=== PATIENT | female | born 1935 | race Caucasian/White ===

== ENCOUNTER 2017-07-18 22:45 | Inpatient (IN) | payer OTHER ==
[~2017-07-18] VITALS: Ht 152.4 cm; Wt 68.0 kg
--- NOTE | 2017-07-18 22:49 | ERD ---
ER Documentation Chief Complaint Chief Complaint Nausea vomiting and abdominal pain HPI The patient is a 81-year-old female, presenting to the ER because of nausea, vomiting, abdominal pain today. She only speaks Russian, her history is limited. The history is obtained from an [place] speaking nurse, who stated that the patient is confused. She fell a few days ago and complains of left proximal leg hematoma, able to walk. She denies fever, chills, cough, neck pain or chest pain, complains of vague left-sided abdominal pain, denies dysuria , denies hematemesis, hematochezia. She does not smoke nor drink X Past medical history: CAD, dyslipidemia, hypertension, chronic kidney disease, dementia Past surgical history: Stent PCI, bilateral knee arthroplasty Social history/review of system: Limited due to her condition ROS All systems reviewed and are negative except as per history of present illness. Medications Home Meds Reported Medications Apixaban* (Eliquis*) 2.5 Mg Tablet, 2.5 MG PO DAILY, TAB 07/19/17 Glycerin* (Glycerin (Adult)*) 1 Each Supp.rect, 1 EACH MA DAILY Y for CONSTIPATION, SUPP.RECT 07/19/17 Amlodipine Besylate* (Norvasc*) 5 Mg Tablet, 5 MG PO QPM, TAB 07/19/17 Atorvastatin* (Atorvastatin*) 80 Mg Tablet, 80 MG PO QHS, #30 TAB 07/19/17 Trazodone Hcl* (Trazodone Hcl*) 50 Mg Tablet, 50 MG PO QHS, #30 TAB 07/19/17 Bethanechol Chloride* (Urecholine*) 25 Mg Tab, 25 MG PO BID, TAB 07/19/17 Acetaminophen* (Acetaminophen*) 500 MG Extra Strength Tablet, 500 MG PO Q6H Y for PAIN, TAB 07/19/17 Mirtazapine* (Mirtazapine*) 15 Mg Tablet, 7.5 MG PO HS, TAB 07/19/17 Docusate Sodium* (Docusate Sodium*) 100 Mg Capsule, 100 MG PO DAILY for CONSTIPATION, #30 CAP 07/19/17 Metoprolol Tartrate* (Lopressor*) 50 Mg Tab, 50 MG PO BID, #60 TAB 07/19/17 Aspirin* (Aspirin* (EC)) 81 Mg Tablet.dr, 81 MG PO DAILY, TAB 07/19/17 Allergies Allergies: Coded Allergies: No Known Allergy (Unverified , 07/18/17) Physical Exam Vitals Vital Signs Date Time Temp Pulse Resp B/P Pulse Ox O2 Delivery O2 Flow Rate FiO2 07/19/17 04:03 98 18 118/57 98 Room Air 07/19/17 02:35 97.8 100 21 128/96 95 Room Air 07/19/17 01:00 96 16 102/90 100 Room Air 07/19/17 00:30 97 16 104/49 100 Room Air 07/18/17 22:53 97.0 80 18 127/56 94 Physical Exam Const: No acute distress. Head: Atraumatic. Eyes: Normal Conjunctiva. ENT: Normal External Ears, Nose and Mouth. Neck: Full range of motion. No meningismus. Resp: Clear to auscultation bilaterally. Cardio: Regular rate and rhythm. Abd: Soft, non distended, normal bowel sounds, vague and mild left- sided abdominal tenderness, no rigidity, rebound, CVA tenderness Skin: No petechiae or rashes. Back: No midline or flank tenderness. Ext: left proximal hematoma Neur: Limited due to her condition and encephalopathic Psych: Unable to perform due to her condition Result Diagram: 07/18/1723407/18/17234 Results 24 hrs Laboratory Tests Test 07/18/17 01:55 07/18/17 02:35 07/19/17 00:08 07/19/17 01:59 Urine Color CODY Urine Clarity TURBID Urine pH 5.0 Urine Specific [place] 1.025 Urine Ketones TRACEmg/dL Urine Nitrite NEGATIVEmg/dL Urine Bilirubin 1+mg/dL Urine Urobilinogen 2+mg/dL Urine Leukocyte Esterase 2+Juan/ul Urine Microscopic RBC > 182/HPF Urine Microscopic WBC > 182/HPF Urine Bacteria MODERATE/HPF Urine Mucus FEW/HPF Urine Hemoglobin 3+mg/dL Urine Glucose NEGATIVEmg/dL Urine Total Protein 2+mg/dl White Blood Count 14.610^3/ul Red Blood Count 3.7910^6/ul Hemoglobin 11.4g/dl Hematocrit 36.2% Mean Corpuscular Volume 95.5fl Mean Corpuscular Hemoglobin 30.1pg Mean Corpuscular Hemoglobin Concent 31.5g/dl Red Cell Distribution Width 14.8% Platelet Count 94545^3/UL Mean Platelet Volume 9.7fl Neutrophils % 86.0% Lymphocytes % 6.0% Monocytes % 7.1% Eosinophils % 0.1% Basophils % 0.3% Nucleated Red Blood Cells % 0.0/100WBC Neutrophils # 12.610^3/ul Lymphocytes # 0.910^3/ul Monocytes # 1.010^3/ul Eosinophils # 0.010^3/ul Basophils # 0.110^3/ul Nucleated Red Blood Cells # 0.010^3/ul Prothrombin Time 15.4Sec Prothrombin Time Ratio 1.2 INR International Normalized Ratio 1.21 Activated Partial Thromboplast Time 26.1Sec Sodium Level 153mmol/L Potassium Level 4.3mmol/L Chloride Level 114mmol/L Carbon Dioxide Level 25mmol/L Anion Gap 18 Blood Urea Nitrogen 37mg/dl Creatinine 1.54mg/dl Glucose Level 144mg/dl Lactic Acid Level 1.9mmol/L Calcium Level 8.8mg/dl Total Bilirubin 0.4mg/dl Direct Bilirubin 0.00mg/dl Indirect Bilirubin 0.4mg/dl Aspartate Amino Transf (AST/SGOT) 30IU/L Alanine Aminotransferase (ALT/SGPT) 28IU/L Alkaline Phosphatase 243IU/L Troponin I < 0.012ng/ml Total Protein 6.8g/dl Albumin 3.5g/dl Globulin 3.30g/dl Albumin/Globulin Ratio 1.06 Lipase 311U/L Bedside Glucose 133mg/dL Bedside Urine pH (LAB) 5.0 Bedside Urine Protein (LAB) 3+ Bedside Urine Glucose (UA) Negative Bedside Urine Ketones (LAB) 1+ Bedside Urine Blood 3+ Bedside Urine Nitrite (LAB) Negative Bedside Urine Leukocyte Esterase (L 1+ Current Medications Medications (Trade) Dose Ordered Sig/Timo Route PRN Reason Start Time Stop Time Status Last Admin Dose Admin Ondansetron HCl (Zofran Inj) 4 mg ONCE ONCE IV 07/18/17 23:30 07/18/17 23:31 DC Ondansetron HCl (Zofran Inj) 4 mg STK-MED ONCE .ROUTE 07/18/17 23:27 07/18/17 23:28 DC Ondansetron HCl 4 mg 4 mg ONCE ONCE ODT 07/19/17 00:22 07/19/17 00:23 DC 07/19/17 00:24 Piperacillin Sod/ Tazobactam Sod (Zosyn 2.25gm/ 50ml (Pmx)) 50 ml @ 100 mls/hr ONCE ONCE IVPB 07/19/17 04:00 07/19/17 04:29 07/19/17 04:01 Procedures/MDM [place] [address] Radiology Main Line: [phone] DIAGNOSTIC IMAGING REPORT Patient: ALEJANDRO DOHERTY : 1935 Age: 81 Sex: F MR #: [id number] DOS: 07/18/172302 Ordering MD: CARLENE BAUTISTA MD Location: E/R Room/Bed: PROCEDURE: XR Chest. CLINICAL INDICATION: Possible Sepsis TECHNIQUE: Single portable view of the chest was obtained COMPARISON: None FINDINGS: Low lung volumes noted. The heart is enlarged. Thoracic aortic atherosclerotic changes are present. The lungs are clear. There is no pleural effusion or pneumothorax. IMPRESSION: 1. Mild cardiomegaly. 2.Thoracic aortic atherosclerotic disease. 3. Low lung volumes. RPTAT: HRSR Physician Jossie Date Time Electronically viewed and signed by Rodrigo Baker Physician on 07/19/2017 02 :19 RR/ CC: CARLENE BAUTISTA MD [place] [address] Radiology Main Line: [phone] DIAGNOSTIC IMAGING REPORT Patient: ALEJANDRO DOHERTY : 1935 Age: 81 Sex: F MR #: [id number] DOS: 07/18/172302 Ordering MD: CARLENE BAUTISTA MD Location: E/R Room/Bed: PROCEDURE: CT BRAIN WITHOUT CONTRAST CLINICAL INDICATION: 81-year-old female with altered mental status and sepsis. TECHNIQUE: The study was performed utilizing [employer] 64-slice CT scanner. Direct axial sections were obtained from the foramen magnum to the vertex without the use of intravenous contrast material. Sagittal and coronal reformations were obtained. Sagittal and coronal reformations were obtained. One or more the following dose reduction techniques were utilized: automated exposure control, adjustment of the mA and/or kV according to patient's size, use of iterative reconstruction technique. The images were viewed on a PACS workstation. CTD/vol = 45.0 mGy; Total Exam DLP = 720.2 mGy-cm. COMPARISON: None. FINDINGS: There is moderate degree of diffuse cortical and central atrophy with compensatory ventricular enlargement. There is no evidence for mass effect or midline shift. There are periventricular areas of decreased density consistent with microangiopathic ischemic changes. There is no evidence for acute intra or extra-axial blood. Calcifications are seen within the intracranial carotid arteries bilaterally. The bony calvarium is intact. There is minimal mucosal thickening within the ethmoid air cells with small air-fluid levels within the sphenoid sinuses. There is minimal dependent soft tissue within the right mastoid air cells presumably granulation tissue from prior mastoid disease. The left mastoid air cells are without significant soft tissue. IMPRESSION: 1. Moderate diffuse atrophy. 2. Microangiopathic ischemic changes. 3. Empty sella. 4. Vascular calcifications. 5. Minimal mucosal thickening ethmoid air cells with small dependent air-fluid levels within the sphenoid sinuses. .Naeem Lizarraga MD, MD Date Time Electronically viewed and signed by .Naeem Lizarraga MD, MD on 07/19/2017 01:21 .M/ CC: CARLENE BAUTISTA MD [place] [address] Radiology Main Line: [phone] DIAGNOSTIC IMAGING REPORT Patient: ALEJANDRO DOHERTY : 1935 Age: 81 Sex: F MR #: [id number] DOS: 07/18/17 2303 Ordering MD: CARLENE BAUTISTA MD Location: E/R Room/Bed: PROCEDURE: CT ABDOMEN/PELVIS WITHOUT CONTRAST CLINICAL INDICATION: 81-year-old female with abdominal pain and sepsis. TECHNIQUE: The study was performed utilizing a GE [employer] 64-slice CT scanner. Direct axial sections were obtained through the abdomen and pelvis without the use of intravenous contrast material. Sagittal and coronal reformations were obtained. One or more of the following dose reduction techniques were utilized: automated exposure control, adjustment of the mA and/ or kV according to patient's size and/or the use of iterative reconstruction technique. The images were reviewed on a PACS workstation. CTD/vol = 19.0 mGy ; Total Exam DLP = 1043.3 mGy-cm. COMPARISON: None. FINDINGS: There is mild cardiomegaly is present. There is trace dependent pericardial effusion. Mitral annular calcification is noted. There is minimal bilateral posterior subsegmental atelectasis. There is no evidence for significant pleural effusion. The liver has a normal size and contour without focal areas of abnormal density. No intrahepatic nor extrahepatic biliary ductal dilatation is seen. There is mild dependent increased density within the gallbladder which may represent sludge versus noncalcified stones without significant wall thickening or pericholecystic fluid. The pancreas is atrophic but without areas of abnormal attenuation. The spleen is identified and has a normal size without abnormal density. The adrenal glands are unremarkable. The kidneys are mildly atrophic with multiple small cysts with the largest cyst in the right mid kidney measuring approximately 11 x 12 mm. The largest cyst in the left kidney measures approximately 10 x 9 mm. No hydroureteronephrosis nor nephroureterolithiasis is evident. The urinary bladder decompressed and contains a Kelley catheter. There is a small umbilical hernia with an opening of 16 x 14 mm containing fat. There is mildly dilated air filled colon with retained stool within the rectosigmoid region measuring approximately 16.5 x 10.9 x 8.6 cm consistent with fecal impaction. The appendix is visualized and is without abnormal thickening or surrounding inflammatory reaction. The uterus is atrophic. There is no significant free fluid. The aortoiliac vessels are calcified but without aneurysmal dilatation. Degenerative changes are present within the spine with multiple compression fractures present. There is an old compression fracture of the superior T12 vertebral body with approximately 70% loss of height. There is an old compression fracture of the inferior L1 vertebral body with approximately 50% loss of height. There is a compression fracture of the L2 vertebral body with approximately 30% loss of height with acute components most prominently within the anterosuperior aspect. There is an old compression fracture the superior L3 vertebral body with approximately 70% loss of height centrally. There is an old compression fracture of the L4 vertebral body with approximately 50% loss of height. There is a compression fracture of the L5 vertebral body with approximately 20% loss of height and acute superior components. Diffuse osteopenia is noted. IMPRESSION: 1. Mild cardiomegaly with trace dependent pericardial effusion and mitral annular calcification. 2. Small dependent gallstones versus sludge. 3. Atrophic kidneys with multiple cysts. 4. Fecal impaction. 5. Decompressed bladder containing a Kelley catheter. 6. Vascular calcifications. 7. Degenerative changes within the spine with multiple compression fractures with acute components identified involving L2 (30%) and L5 (20%) as well as old compression fractures of T12 (70%), L1 (50%), L3 (70%), L4 (50%). 8. Diffuse osteopenia. .Naeem Lizarraga MD, Date Time Electronically viewed and signed by .Naeem Lizarraga MD, MD on 07/19/2017 01:35 .M/ CC: CARLENE BAUTISTA MD [place] [address] Radiology Main Line: [phone] DIAGNOSTIC IMAGING REPORT Patient: ALEJANDRO DOHERTY : 1935 Age: 81 Sex: F MR #: [id number] DOS: 07/18/17 2307 Ordering MD: CARLENE BAUTISTA MD Location: E/R Room/Bed: PROCEDURE: XR Tibia and Fibula. CLINICAL INDICATION: Pain. TECHNIQUE: AP, lateral and oblique views of the left tibia and fibula were obtained. COMPARISON: Left knee of the same date FINDINGS: Total left knee arthroplasty changes are present without evidence of a periprosthetic fracture or evidence of surgical hardware loosening. The bones are demineralized. Prominent anterolateral soft tissue swelling adjacent to the proximal fibula is seen. Diagnostic considerations include soft tissue hematoma (favored), and infectious/inflammatory change. Degenerative changes of the ankle joint are noted. IMPRESSION: 1. Soft tissue swelling adjacent to the anterolateral proximal fibula likely to represent a small hematoma. Other consideration includes infectious/ inflammatory change. 2. Left knee arthroplasty changes without evidence of periprosthetic fracture or hardware loosening. 3. Demineralized osseous changes. 4. Degenerative ankle joint changes. RPTAT: HRSR Rodrigo Baker Physician Date Time Electronically viewed and signed by Rodrigo Baker Physician on 07/19/2017 02 :17 RR/ CC: CARLENE BAUTISTA MD [place] [address] Radiology Main Line: [phone] DIAGNOSTIC IMAGING REPORT Patient: ALEJANDRO DOHERTY : 1935 Age: 81 Sex: F MR #: [id number] DOS: 07/18/17 2307 Ordering MD: CARLENE BAUTISTA MD Location: E/R Room/Bed: PROCEDURE: Left knee x-ray CLINICAL INDICATION: Pain and swelling. TECHNIQUE: AP and lateral views of the left knee were obtained. COMPARISON: None. FINDINGS: Total left knee arthroplasty changes are present. There is no acute periprosthetic fracture, dislocation or evidence of hardware loosening. Anterolateral soft tissue swelling is present adjacent to the proximal fibula. There is no evidence of periosteal reaction or osteomyelitis. No evidence of a joint effusion. IMPRESSION: 1. Prominent soft tissue swelling adjacent to the anterolateral proximal fibula without evidence of fracture, dislocation or osteomyelitis. 2. Left knee total arthroplasty changes without evidence of hardware loosening. RPTAT: HRSR Rodrigo Baker Physician Date Time Electronically viewed and signed by Rodrigo Baker, Physician on 07/19/2017 02 :14 RR/ CC: CARLENE BAUTISTA MD [place] [address] Radiology Main Line: [phone] DIAGNOSTIC IMAGING REPORT Patient: ALEJANDRO DOHERTY : 1935 Age: 81 Sex: F MR #: [id number] DOS: 07/19/17 0232 Ordering MD: CARLENE BAUTISTA MD Location: E/R Room/Bed: PROCEDURE: XR Chest. CLINICAL INDICATION: Status post central line TECHNIQUE: Single frontal view of the chest was obtained COMPARISON: 07/19/2017 at 01:29 a.m. FINDINGS: Right central venous catheter tip near the atriocaval junction. No definite pneumothorax is seen with the patient semi-erect. There is hypoinflation of the lungs and minimal bibasilar atelectasis. The patient is rotated to the right. Hypoinflation of the lungs and portable AP technique accentuates the size of the cardiac silhouette. There is appearance of minimal enlargement of the cardiac silhouette. Calcification in the aortic arch. ECG leads are projected over the chest. There is minimal prominence of the lung interstitium likely minimal chronic changes. IMPRESSION: Right central venous catheter tip near atriocaval junction. Please see above. RPTAT: HJES .Rubin Reid MD, MD Date Time Electronically viewed and signed by .Rubin Reid MD, MD on 07/19/2017 03:07 .S/ CC: CARLENE BAUTISTA MD EKG: Read by emergency physician Rate/Rhythm: Normal Sinus Rhythm 89 beats/min QRS, ST, T-waves: No ST elevation, no T inversion, artifacts, low voltage, nonspecific T abnormality Impression: Abnormal EKG MEDICAL MAKING DECISION: The patient is a 81-year-old female, presenting with acute encephalopathy of unclear etiology, acute cystitis, acute hyponatremia, left proximal tibia hematoma. She was treated with Zosyn IV for acute cystitis with good response The differential diagnoses considered include but are not limited to CVA, tumor , metabolic encephalopathy, septic encephalopathy and pneumonia, cystitis or pyelonephritis, diarrhea, worsening dementia . Central Line Placement by me: Patient consented, sterilely draped, full prep, gown, glove, mask, time out performed. Anesthesia: 1% lidocaine locally Location: Right internal jugular vein Device: Multiple lumen Technique: Seldinger technique. Secured with suture. Results: Venous return from all ports with easy saline flush. No complications. Guide wire retrieved and disposed of. [ED Ultrasound: Central line placed by me using concurrent ultrasound guidance. Real time image archived in the medical record confirms vascular anatomy. Chest X-ray 1V Interpreted by me: Central line in SVC, Normal soft tissue, No evidence of pneumothorax. Departure Diagnosis: Primary Impression: Encephalopathy acute Additional Impressions: UTI (urinary tract infection) Hypernatremia Hematoma of left lower extremity Anemia Condition: Stable Comments I discussed the findings with the patient. I discussed the patient with on-call hospitalist Dr. Watt who was made aware of the lab, the treatment, the patient condition. The patient is admitted to telemetry at 4:10 AM Disclaimer: Inadvertent spelling and grammatical errors are likely due to EHR/ dictation software use and do not reflect on the overall quality of patient care. Also, please note that the electronic time recorded on this note does not necessarily reflect the actual time of the patient encounter. CARLENE BAUTISTA MD Jul 18, 2017 22:49
[2017-07-18 22:53] VITALS: Ht 152.4 cm; Wt 68.0 kg
[2017-07-18] MEDS ORDERED: ONDANSETRON 4 MG INJ ONE (23:27)
[2017-07-18] MEDS ORDERED: ONDANSETRON 4 MG INJ IV ONE (23:30)
[2017-07-19] VITALS (12 sets, daily range): BP systolic 99–119; BP diastolic 57–78; PULSE 85–112; RESP 18–20; TEMP 97.8
[2017-07-19] MEDS ORDERED: ONDANSETRON (ODT) 4 MG TAB ODT ONE (00:22)
--- NOTE | 2017-07-19 01:21 | RADRPT ---
PROCEDURE: CT BRAIN WITHOUT CONTRAST CLINICAL INDICATION: 81-year-old female with altered mental status and sepsis. TECHNIQUE: The study was performed utilizing [employer] VCT 64-slice CT scanner. Direct axial sections were obtained from the foramen magnum to the vertex without the use of intravenous contrast material. Sagittal and coronal reformations were obtained. Sagittal and coronal reformations were obtained. One or more the following dose reduction techniques were utilized: automated exposure cont rol, adjustment of the mA and/or kV according to patient's size, use of iterative reconstruction honorio hnique. The images were viewed on a PACS workstation. CTD/vol = 45.0 mGy; Total Exam DLP = 720.2 mG y-cm. COMPARISON: None. FINDINGS: There is moderate degree of diffuse cortical and central atrophy with compensatory ventricular enlar gement. There is no evidence for mass effect or midline shift. There are periventricular areas of decreased density consistent with microangiopathic ischemic changes. There is no evidence for acute intra or extra-axial blood. Calcifications are seen within the intracranial carotid arteries bilate rally. The bony calvarium is intact. There is minimal mucosal thickening within the ethmoid air cell s with small air-fluid levels within the sphenoid sinuses. There is minimal dependent soft tissue wi thin the right mastoid air cells presumably granulation tissue from prior mastoid disease. The left mastoid air cells are without significant soft tissue. IMPRESSION: 1. Moderate diffuse atrophy. 2. Microangiopathic ischemic changes. 3. Empty sella. 4. Vascular calcifications. 5. Minimal mucosal thickening ethmoid air cells with small dependent air-fluid levels within the sp henoid sinuses. .Naeem Lizarraga MD, Date Time Electronically viewed and signed by .Naeem Lizarraga MD, on 07/19/2017 01:21 .M/
--- NOTE | 2017-07-19 01:35 | RADRPT ---
PROCEDURE: CT ABDOMEN/PELVIS WITHOUT CONTRAST CLINICAL INDICATION: 81-year-old female with abdominal pain and sepsis. TECHNIQUE: The study was performed utilizing a [employer] VCT 64-slice CT scanner. Direct axia l sections were obtained through the abdomen and pelvis without the use of intravenous contrast mate rial. Sagittal and coronal reformations were obtained. One or more of the following dose reduction t echniques were utilized: automated exposure control, adjustment of the mA and/or kV according to pat ient's size and/or the use of iterative reconstruction technique. The images were reviewed on a PAC S workstation. CTD/vol = 19.0 mGy; Total Exam DLP = 1043.3 mGy-cm. COMPARISON: None. FINDINGS: There is mild cardiomegaly is present. There is trace dependent pericardial effusion. Mitral annular calcification is noted. There is minimal bilateral posterior subsegmental atelectasis. There is no evidence for significant pleural effusion. The liver has a normal size and contour without focal ar eas of abnormal density. No intrahepatic nor extrahepatic biliary ductal dilatation is seen. There i s mild dependent increased density within the gallbladder which may represent sludge versus noncalci fied stones without significant wall thickening or pericholecystic fluid. The pancreas is atrophic b ut without areas of abnormal attenuation. The spleen is identified and has a normal size without ab normal density. The adrenal glands are unremarkable. The kidneys are mildly atrophic with multiple s mall cysts with the largest cyst in the right mid kidney measuring approximately 11 x 12 mm. The lar gest cyst in the left kidney measures approximately 10 x 9 mm. No hydroureteronephrosis nor nephroureterolithiasis is evident. The urinary bladder decompressed and contains a Kelley catheter. T here is a small umbilical hernia with an opening of 16 x 14 mm containing fat. There is mildly dilat ed air filled colon with retained stool within the rectosigmoid region measuring approximately 16.5 x 10.9 x 8.6 cm consistent with fecal impaction. The appendix is visualized and is without abnormal thickening or surrounding inflammatory reaction. The uterus is atrophic. There is no significant dominik e fluid. The aortoiliac vessels are calcified but without aneurysmal dilatation. Degenerative change s are present within the spine with multiple compression fractures present. There is an old compress ion fracture of the superior T12 vertebral body with approximately 70% loss of height. There is an o ld compression fracture of the inferior L1 vertebral body with approximately 50% loss of height. The re is a compression fracture of the L2 vertebral body with approximately 30% loss of height with acu te components most prominently within the anterosuperior aspect. There is an old compression fracture t he superior L3 vertebral body with approximately 70% loss of height centrally. There is an old compr ession fracture of the L4 vertebral body with approximately 50% loss of height. There is a compressi on fracture of the L5 vertebral body with approximately 20% loss of height and acute superior compon ents. Diffuse osteopenia is noted. IMPRESSION: 1. Mild cardiomegaly with trace dependent pericardial effusion and mitral annular calcification. 2. Small dependent gallstones versus sludge. 3. Atrophic kidneys with multiple cysts. 4. Fecal impaction. 5. Decompressed bladder containing a Kelley catheter. 6. Vascular calcifications. 7. Degenerative changes within the spine with multiple compression fractures with acute components identified involving L2 (30%) and L5 (20%) as well as old compression fractures of T12 (70%), L1 (50 %), L3 (70%), L4 (50%). 8. Diffuse osteopenia. .Naeem Lizarraga MD, MD Date Time Electronically viewed and signed by .Naeem Lizarraga MD, on 07/19/2017 01:35 .Delaney/
[2017-07-19 02:01] LABS: URINE BLOOD (Dip) POC 3+ (NEGATIVE)
--- NOTE | 2017-07-19 02:15 | RADRPT ---
PROCEDURE: Left knee x-ray CLINICAL INDICATION: Pain and swelling. TECHNIQUE: AP and lateral views of the left knee were obtained. COMPARISON: None. FINDINGS: Total left knee arthroplasty changes are present. There is no acute periprosthetic fracture, disloca tion or evidence of hardware loosening. Anterolateral soft tissue swelling is present adjacent to th e proximal fibula. There is no evidence of periosteal reaction or osteomyelitis. No evidence of a nisha int effusion. IMPRESSION: 1. Prominent soft tissue swelling adjacent to the anterolateral proximal fibula without evidence of fracture, dislocation or osteomyelitis. 2. Left knee total arthroplasty changes without evidence of hardware loosening. RPTAT: HRSR Physician Jossie Date Time Electronically viewed and signed by Physician Jossie on 07/19/2017 02:14 /
--- NOTE | 2017-07-19 02:17 | RADRPT ---
PROCEDURE: XR Tibia and Fibula. CLINICAL INDICATION: Pain. TECHNIQUE: AP, lateral and oblique views of the left tibia and fibula were obtained. COMPARISON: Left knee of the same date FINDINGS: Total left knee arthroplasty changes are present without evidence of a periprosthetic fracture or ev idence of surgical hardware loosening. The bones are demineralized. Prominent anterolateral soft tis adri swelling adjacent to the proximal fibula is seen. Diagnostic considerations include soft tissue hematoma (favored), and infectious/inflammatory change. Degenerative changes of the ankle joint are noted. IMPRESSION: 1. Soft tissue swelling adjacent to the anterolateral proximal fibula likely to represent a small h ematoma. Other consideration includes infectious/inflammatory change. 2. Left knee arthroplasty changes without evidence of periprosthetic fracture or hardware loosening . 3. Demineralized osseous changes. 4. Degenerative ankle joint changes. RPTAT: HRSR Physician Jossie Date Time Electronically viewed and signed by Physician Jossie on 07/19/2017 02:17 RR/
--- NOTE | 2017-07-19 02:19 | RADRPT ---
PROCEDURE: XR Chest. CLINICAL INDICATION: Possible Sepsis TECHNIQUE: Single portable view of the chest was obtained COMPARISON: None FINDINGS: Low lung volumes noted. The heart is enlarged. Thoracic aortic atherosclerotic changes are present. The lungs are clear. There is no pleural effusion or pneumothorax. IMPRESSION: 1. Mild cardiomegaly. 2.Thoracic aortic atherosclerotic disease. 3. Low lung volumes. RPTAT: HRSR Physician Jossie Date Time Electronically viewed and signed by Rodrigo Baker Physician on 07/19/2017 02:19 RR/
[2017-07-19 03:03] LABS: BASOPHIL # 0.1 10^3/ul (0.0-0.1); BASOPHILS % 0.3 % (0.0-2.0); EOSINOPHILS % 0.1 % (0.0-7.0); HEMATOCRIT 36.2 % (37.0-47.0); HEMOGLOBIN 11.4 g/dl (12.0-16.0); LYMPHOCYTES # 0.9 10^3/ul (0.8-2.9); MEAN CORPUSCULAR HEMOGLOBIN 30.1 pg (29.0-33.0); MEAN CORPUSCULAR HGB CONC 31.5 g/dl (32.0-37.0); MEAN CORPUSCULAR VOLUME 95.5 fl (82.0-101.0); MEAN PLATELET VOLUME 9.7 fl (7.4-10.4); MONOCYTES % 7.1 % (0.0-11.0); NEUTROPHIL # 12.6 10^3/ul (1.6-7.5); PLATELET COUNT 210 10^3/UL (140-415); RED BLOOD COUNT 3.79 10^6/ul (4.20-5.40); RED CELL DISTRIBUTION WIDTH 14.8 % (11.5-14.5); WHITE BLOOD COUNT 14.6 10^3/ul (4.8-10.8)
--- NOTE | 2017-07-19 03:08 | RADRPT ---
PROCEDURE: XR Chest. CLINICAL INDICATION: Status post central line TECHNIQUE: Single frontal view of the chest was obtained COMPARISON: 07/19/2017 at 01:29 a.m. FINDINGS: Right central venous catheter tip near the atriocaval junction. No definite pneumothorax is seen wi th the patient semi-erect. There is hypoinflation of the lungs and minimal bibasilar atelectasis. Th e patient is rotated to the right. Hypoinflation of the lungs and portable AP technique accentuates the size of the cardiac silhouette. There is appearance of minimal enlargement of the cardiac silhou ette. Calcification in the aortic arch. ECG leads are projected over the chest. There is minimal pro minence of the lung interstitium likely minimal chronic changes. IMPRESSION: Right central venous catheter tip near atriocaval junction. Please see above. RPTAT: HJES .Rubin Reid MD, MD Date Time Electronically viewed and signed by .Rubin Reid MD, MD on 07/19/2017 03:07 .S/
[2017-07-19 03:10] LABS: INR 1.21; PROTIME 15.4 Sec (12.2-14.2); PT RATIO 1.2
[2017-07-19] MEDS ORDERED: ATOR80TA75 PO (03:10)
[2017-07-19] MEDS ORDERED: METO-429 PO (03:10)
[2017-07-19] MEDS ORDERED: DOCU-159 PO (03:10)
[2017-07-19] MEDS ORDERED: MIRT15TA5 PO (03:10)
[2017-07-19] MEDS ORDERED: ACET-141 PO (03:10)
[2017-07-19] MEDS ORDERED: AMLO5TAB4 PO (03:10)
[2017-07-19] MEDS ORDERED: GLYC1SUP92 PR (03:10)
[2017-07-19] MEDS ORDERED: ASPI-664 PO (03:10)
[2017-07-19] MEDS ORDERED: BETH25TA39 PO (03:10)
[2017-07-19] MEDS ORDERED: APIX2.5T PO (03:10)
[2017-07-19] MEDS ORDERED: TRAZ50TA18 PO (03:10)
[2017-07-19 03:11] LABS: PARTIAL THROMBOPLASTIN TIME 26.1 Sec (25.0-35.0)
[2017-07-19 03:12] LABS: ADD UMIC YES; UR ASCORBIC ACID NEGATIVE (NEGATIVE); UR BACTERIA MODERATE /HPF (NONE SEEN); UR BILIRUBIN (Dip) 1+ mg/dL (NEGATIVE); UR BLOOD (Dip) 3+ mg/dL (NEGATIVE); UR CLARITY TURBID (CLEAR); UR COLOR AMBER (YELLOW); UR GLUCOSE (Dip) NEGATIVE (NEGATIVE); UR KETONES (Dip) TRACE mg/dL (NEGATIVE); UR LEUKOCYTE ESTERASE (Dip) 2+ Leu/ul (NEGATIVE); UR MUCUS FEW /HPF (NONE SEEN); UR NITRITE (Dip) NEGATIVE (NEGATIVE); UR RBC > 182 /HPF (0-5); UR SPECIFIC GRAVITY (Dip) 1.025 (1.003-1.030); UR TOTAL PROTEIN (Dip) 2+ mg/dl (NEGATIVE); UR UROBILINOGEN (Dip) 2+ mg/dL (NEGATIVE)
[2017-07-19 03:36] LABS: ALANINE AMINOTRANSFERASE 28 IU/L (13-69); ALBUMIN 3.5 g/dl (3.3-4.9); ALBUMIN/GLOBULIN RATIO 1.06; ALKALINE PHOSPHATASE 243 IU/L (42-121); ANION GAP 18 (8-16); ASPARTATE AMINO TRANSFERASE 30 IU/L (15-46); BILIRUBIN,INDIRECT 0.4 mg/dl (0-1.1); BILIRUBIN,TOTAL 0.4 mg/dl (0.2-1.3); BLOOD UREA NITROGEN 37 mg/dl (7-20); CALCIUM 8.8 mg/dl (8.4-10.2); CARBON DIOXIDE 25 mmol/L (21-31); CHLORIDE 114 mmol/L (97-110); CREATININE 1.54 mg/dl (0.44-1.00); GLUCOSE 144 mg/dl (70-220); POTASSIUM 4.3 mmol/L (3.5-5.1); SODIUM 153 mmol/L (135-144); TOTAL PROTEIN 6.8 g/dl (6.1-8.1)
[2017-07-19 03:51] LABS: TROPONIN-I < 0.012 ng/ml (0.00-0.12)
[2017-07-19] MEDS ORDERED: PIPER-TAZO 2.25 GM (PMX) 50 ML IVPB ONE (04:00)
[2017-07-19] MEDS ORDERED: ONDANSETRON 4 MG INJ IV PRN (07:00)
[2017-07-19] MEDS: CEFTRIAXONE 1 GM/50 ML (PMX) 50 ML IVPB SCH ×2 (08:34→21:13)
[2017-07-19] MEDS: DEXTROSE 5% 1,000 ML IV SCH ×2 (08:34→21:18)
--- NOTE | 2017-07-19 09:48 | HP ---
Date/Time of Note Date/Time of Note DATE: 07/19/17 TIME: 09:36 Assessment/Plan VTE Prophylaxis VTE Prophylaxis Intervention: SCD's Lines/Catheters Urinary Cath still in place: Yes Reason Cath still needed: other (indicate) Assessment/Plan Assessment/Plan 1. Abdominal pain with nausea and vomiting and diarrhea -This could be from gastroenteritis or infectious process from UTI -Keep n.p.o. for now and treat UTI -IV fluid -Stool studies 2. UTI IV antibiotic with IV fluid Follow-up culture results 3. Left lower extremity swelling, status post fall Imaging with soft tissue swelling but no acute fracture Pain management Physical therapy eval the patient able to 4. Hypernatremia -D5W 5. History of CAD with stent Continue home medications. Hold Eliquis 6. History of dyslipidemia Continue statin 7. History of dementia -Likely worsening was fall, infectious etiology and hypernatremia -See above for treatment plan -Palliative care consultation has been placed HPI/ROS Admit Date/Time Admit Date/Time Jul 19, 2017 at 04:12 Hx of Present Illness This is an 81-year-old female with history of CAD with stent, dyslipidemia, hypertension, chronic kidney disease, dementia was brought to ER from assisted living facility for left lower extremity pain swelling, abdominal pain, nausea/ vomiting and diarrhea. Patient is not fully oriented and as such information is gathered from chart review and from the ER physician. Patient recently fell down and has been having pain and swelling of left lower extremity. While she was in the ER, she was noted to have multiple episodes of bowel movements. On presentation to the ER, vitals were stable. Multiple imagings were done. Left fibula/tibia imaging showed soft tissue swelling. CT abdomen pelvis showed degenerative changes within the spine with multiple compression fractures with chronic and acute components. Head CT with no acute findings. Labs shows WBC of almost 15,000 and urinalysis consistent with UTI. PMH/Family/Social Social History Smoking Status: Never smoker Exam/Review of Systems Vital Signs Vitals Vital Signs Date Time Temp Pulse Resp B/P Pulse Ox O2 Delivery O2 Flow Rate FiO2 07/19/17 08:09 87 07/19/17 07:16 97.8 20 99/57 98 07/19/17 05:30 Room Air Exam Constitutional: alert, oriented Head: atraumatic, normocephalic Eyes: EOMI Respiratory: clear to auscultation, normal air movement Cardiovascular: regular rate and rhythm Gastrointestinal: soft Extremities: normal pulses Labs Result Diagram: 07/18/1723407/18/17234 Medications Medications Current Medications Dextrose 1,000 ml @ 75 mls/hr [id number] IV Last administered on 07/19/17 08:34 ; Admin Dose 75 MLS/HR; Start 07/19/17 at 07:00 Ceftriaxone Sodium (Rocephin) 50 ml @ 100 mls/hr Q12 IVPB Last administered on 07/19/17 08:34; Admin Dose 100 MLS/HR; Start 07/19/17 at 09:00 Ondansetron HCl (Zofran Inj) 4 mg Q6H PRN IV NAUSEA AND/OR VOMITING; Start 07/19/17 at 07:00 CHER BROWN MD Jul 19, 2017 09:48
[2017-07-19] MEDS ORDERED: ACETAMINOPHEN 500 MG TAB PO PRN (10:00)
[2017-07-19 11:15] LABS: BASOPHILS % 0.1 % (0.0-2.0); HEMATOCRIT 32.3 % (37.0-47.0); HEMOGLOBIN 10.1 g/dl (12.0-16.0); LYMPHOCYTES # 0.9 10^3/ul (0.8-2.9); LYMPHOCYTES % 8.7 % (15.0-51.0); MEAN CORPUSCULAR HEMOGLOBIN 30.1 pg (29.0-33.0); MEAN CORPUSCULAR HGB CONC 31.3 g/dl (32.0-37.0); MEAN CORPUSCULAR VOLUME 96.1 fl (82.0-101.0); MEAN PLATELET VOLUME 9.9 fl (7.4-10.4); MONOCYTE # 0.5 10^3/ul (0.3-0.9); MONOCYTES % 5.2 % (0.0-11.0); NEUTROPHIL # 8.6 10^3/ul (1.6-7.5); NEUTROPHILS % 85.5 % (39.0-77.0); PLATELET COUNT 168 10^3/UL (140-415); RED BLOOD COUNT 3.36 10^6/ul (4.20-5.40); RED CELL DISTRIBUTION WIDTH 14.8 % (11.5-14.5); WHITE BLOOD COUNT 10.1 10^3/ul (4.8-10.8)
[2017-07-19 11:24] LABS: POSITIVE DIFF @See below
[2017-07-19 11:27] LABS: ALBUMIN 2.9 g/dl (3.3-4.9); BILIRUBIN,INDIRECT 0.2 mg/dl (0-1.1); BILIRUBIN,TOTAL 0.2 mg/dl (0.2-1.3); CALCIUM 8.3 mg/dl (8.4-10.2); CREATININE 1.33 mg/dl (0.44-1.00); TOTAL PROTEIN 5.8 g/dl (6.1-8.1)
[2017-07-19] MEDS: MIRTAZAPINE 15 MG TAB PO SCH (21:13)
[2017-07-19] MEDS: ATORVASTATIN 80 MG TAB PO SCH (21:13)
[2017-07-19] MEDS: AMLODIPINE 5 MG TAB PO SCH (21:14)
[2017-07-19] MEDS: traZODone 50 MG TAB PO SCH (21:14)
[2017-07-19] MEDS: BETHANECHOL 25 MG TAB PO SCH (21:14)
[2017-07-19] MEDS: METOPROLOL 50 MG TAB PO SCH (21:15)
[2017-07-20] VITALS (11 sets, daily range): BP systolic 100–110; BP diastolic 59–66; PULSE 82–101; RESP 16–18
[2017-07-20] MEDS: DEXTROSE 5% 1,000 ML IV SCH ×2 (05:08→15:08)
[2017-07-20] MEDS ORDERED: VANCOMYCIN IV PER PHARMACY XX SCH (06:30)
[2017-07-20] MEDS ORDERED: VANCOMYCIN 1.25 GM in SOD CHLORIDE 0.9% 250 ML IVPB ONE (08:00)
[2017-07-20] MEDS ORDERED: APIXABAN 5 MG TABLET PO SCH (09:00)
[2017-07-20 09:06] LABS: BASOPHILS % 0.3 % (0.0-2.0); EOSINOPHILS % 0.5 % (0.0-7.0); HEMATOCRIT 29.7 % (37.0-47.0); HEMOGLOBIN 9.2 g/dl (12.0-16.0); LYMPHOCYTES # 1.3 10^3/ul (0.8-2.9); LYMPHOCYTES % 16.6 % (15.0-51.0); MEAN CORPUSCULAR HEMOGLOBIN 29.8 pg (29.0-33.0); MEAN CORPUSCULAR VOLUME 96.1 fl (82.0-101.0); MEAN PLATELET VOLUME 9.8 fl (7.4-10.4); MONOCYTE # 0.6 10^3/ul (0.3-0.9); MONOCYTES % 8.2 % (0.0-11.0); NEUTROPHIL # 5.8 10^3/ul (1.6-7.5); NEUTROPHILS % 73.9 % (39.0-77.0); PLATELET COUNT 165 10^3/UL (140-415); RED BLOOD COUNT 3.09 10^6/ul (4.20-5.40); RED CELL DISTRIBUTION WIDTH 14.9 % (11.5-14.5); WHITE BLOOD COUNT 7.8 10^3/ul (4.8-10.8)
[2017-07-20 09:29] LABS: CALCIUM 8.1 mg/dl (8.4-10.2); CREATININE 1.26 mg/dl (0.44-1.00); MAGNESIUM 1.7 mg/dl (1.7-2.5); PHOSPHORUS 3.6 mg/dl (2.5-4.9); POTASSIUM 3.1 mmol/L (3.5-5.1)
[2017-07-20] MEDS: ASPIRIN (EC) 81 MG TAB PO SCH (09:50)
[2017-07-20] MEDS: METOPROLOL 50 MG TAB PO SCH ×2 (09:50→23:38)
[2017-07-20] MEDS: BETHANECHOL 25 MG TAB PO SCH ×2 (09:50→21:55)
[2017-07-20] MEDS: DOCUSATE SODIUM 100 MG CAP PO SCH (09:50)
[2017-07-20] MEDS: CEFTRIAXONE 1 GM/50 ML (PMX) 50 ML IVPB SCH (09:50)
[2017-07-20] MEDS ORDERED: POTASSIUM CHLORIDE 250 ML IVPB ONE (12:00)
[2017-07-20] MEDS ORDERED: MAGNESIUM SULFATE 2 GM/50 ML 50 ML IVPB ONE (12:30)
[2017-07-20] MEDS ORDERED: ENOXAPARIN 30 MG/0.3 ML SYG SC SCH (13:00)
--- NOTE | 2017-07-20 16:10 | CONS ---
DATE OF ADMISSION: 07/19/2017 DATE OF CONSULTATION: 07/20/2017 INFECTIOUS DISEASE CONSULTATION REASON FOR CONSULTATION: Antibiotic management. HISTORY OF PRESENT ILLNESS: Frieda Candelario is an 81-year-old female with a number of problems who is being seen for antibiotic management. Her past problems include: 1. Coronary artery disease with stent placement. 2. Dyslipidemia. 3. Hypertension. 4. Chronic renal disease. 5. Senile dementia. She was brought to the emergency room for left lower extremity pain and swelling as well as abdomina l pain, nausea, vomiting and diarrhea. She is not fully oriented. She recently fell down and has p ain as well as swelling of the left lower extremity. She had multiple bowel movements in the emerge ncy room. A left tibia and fibula imaging showed soft tissue swelling. CT of the abdomen and pelvi s showed degenerative changes within the spine with multiple compression fractures with chronic and acute components. CT scan showed no acute findings. Lab shows white count of almost 15,000. Urina lysis is consistent with a UTI. PAST MEDICAL HISTORY AND OPERATIONS: As outlined. FAMILY HISTORY: Noncontributory. SOCIAL HISTORY: She does not smoke, drink or abuse drugs. ALLERGIES: NONE TO PENICILLIN, SULFA OR FOODS. MEDICATIONS: Per chart. REVIEW OF SYSTEMS: As per HPI. PHYSICAL EXAMINATION: GENERAL: The patient is an elderly appearing [place] female who is awake, but noncommunicative, co mplaining of nausea, vomiting, abdominal pain, in no acute distress. VITAL SIGNS: Stable. She is afebrile. SKIN: Without generalized rash. HEENT: Within normal limits. NECK: Supple. LYMPH NODES: None palpable. CHEST: Decreased breath sounds at the bases. HEART: Without murmur or gallop. ABDOMEN: Soft, nontender, without organosplenomegaly or masses. She has some CVA tenderness. RECTAL AND GENITAL EXAMS: Deferred. NEUROLOGICAL EVALUATION: No focal neurological abnormalities. Exam limited by encephalopathy. LABORATORY DATA: Her white count on admission was 14.6, H and H of 11.4 and 36.2, platelet count 21 0,000. BUN and creatinine 37/1.54. Urine showed leukocyte esterase 2+, nitrite negative, greater t duque 102 white cells per high powered field. Her chest x-ray shows right central vein catheter near the tip of the atriocaval junction, but no pneumothorax or obvious infection. Microbiology - gram-p ositive cocci in pairs and clusters in the blood, 1/2. Urine is growing Staphylococcus aureus and g kavya-negative rods. IMPRESSION: The patient has significant urinary tract infection. She has been started on vancomyci n and ceftriaxone. I concur with this approach. We will see what the gram-negative rods are, we jeny y want to change her to cefepime. I will dictate my findings to the hospitalist. Dictated By: ROSA YANG MD, JD/NTS Conf#: [id number] DID#: [id number] CC: CHER BROWN MD;*End*
--- NOTE | 2017-07-20 18:18 | PN ---
Date/Time of Note Date/Time of Note DATE: 07/20/17 TIME: 18:11 Assessment/Plan VTE Prophylaxis VTE Prophylaxis Intervention: other Assessment/Plan Chief Complaint/Hosp Course 1. Sepsis secondary to UTI Urine culture shows staph and gram-negative rods ID consultation appreciated Continue vancomycin cefepime 2. History of end-stage dementia Patient is followed by hospice 3. Left lower extremity swelling, status post fall Imaging with soft tissue swelling but no acute fracture Pain management 4. Hypernatremia-resolved Continue IV fluids 5. History of CAD with stent Continue home medications 6. History of dyslipidemia Continue statin 7. Atrial fibrillation Continue beta-abdoulaye and Eliquis 8. History of compression fractures Prophylaxis: Eliquis Problems: Subjective 24 Hr Interval Summary Constitutional: disoriented Exam/Review of Systems Vital Signs Vitals Vital Signs Date Time Temp Pulse Resp B/P Pulse Ox O2 Delivery O2 Flow Rate FiO2 07/20/17 16:00 94 07/20/17 15:23 98.1 16 102/63 97 07/19/17 05:30 Room Air Intake and Output 07/19/17 07/19/17 07/20/17 15:00 23:00 07:00 Intake Total 200 ml 100 ml Output Total 400 ml 430 ml Balance -200 ml -330 ml Exam Constitutional: alert Psych: confusion Respiratory: clear to auscultation Cardiovascular: regular rate and rhythm Gastrointestinal: soft, No distended Musculoskeletal: nl extremities to inspection Results Result Diagram: 07/20/17 0749 07/20/17 0749 Results 24 hrs Laboratory Tests Test 07/20/17 07:49 White Blood Count 7.8 # Red Blood Count 3.09 L Hemoglobin 9.2 L Hematocrit 29.7 L Mean Corpuscular Volume 96.1 Mean Corpuscular Hemoglobin 29.8 Mean Corpuscular Hemoglobin Concent 31.0 L Red Cell Distribution Width 14.9 H Platelet Count 165 Mean Platelet Volume 9.8 Neutrophils % 73.9 Lymphocytes % 16.6 Monocytes % 8.2 Eosinophils % 0.5 Basophils % 0.3 Nucleated Red Blood Cells % 0.0 Neutrophils # 5.8 Lymphocytes # 1.3 Monocytes # 0.6 Eosinophils # 0.0 Basophils # 0.0 Nucleated Red Blood Cells # 0.0 Sodium Level 140 Potassium Level 3.1 L Chloride Level 108 Carbon Dioxide Level 24 Anion Gap 11 Blood Urea Nitrogen 38 H Creatinine 1.26 H Glucose Level 87 # Calcium Level 8.1 L Phosphorus Level 3.6 Magnesium Level 1.7 Medications Medications Current Medications Dextrose (D5W) 1,000 ml @ 100 mls/hr Q10H IV Last administered on 07/20/17 05:08; Admin Dose 100 MLS/HR; Start 07/19/17 at 07:00 Ondansetron HCl (Zofran Inj) 4 mg Q6H PRN IV NAUSEA AND/OR VOMITING; Start 07/19/17 at 07:00 Acetaminophen (Tylenol Tab) 500 mg Q6H PRN PO PAIN; Start 07/19/17 at 10:00 Amlodipine Besylate (Norvasc) 5 mg QPM PO Last administered on 07/19/17 21:14 ; Admin Dose 5 MG; Start 07/19/17 at 21:00 Aspirin (Halfprin) 81 mg DAILY PO Last administered on 07/20/17 09:50; Admin Dose 81 MG; Start 07/20/17 at 09:00 Atorvastatin Calcium (Lipitor) 80 mg QHS PO Last administered on 07/19/17 21: 13; Admin Dose 80 MG; Start 07/19/17 at 21:00 Bethanechol Chloride (Urecholine) 25 mg BID PO Last administered on 07/20/17 09:50; Admin Dose 25 MG; Start 07/19/17 at 21:00 Docusate Sodium (Colace) 100 mg DAILY PO Last administered on 07/20/17 09:50 ; Admin Dose 100 MG; Start 07/20/17 at 09:00 Metoprolol Tartrate (Lopressor) 50 mg BID PO Last administered on 07/20/17 09 :50; Admin Dose 50 MG; Start 07/19/17 at 21:00 Mirtazapine (Remeron) 7.5 mg HS PO Last administered on 07/19/17 21:13; Admin Dose 7.5 MG; Start 07/19/17 at 21:00 Trazodone HCl 50 mg 50 mg QHS PO Last administered on 07/19/17 21:14; Admin Dose 50 MG; Start 07/19/17 at 21:00 Vancomycin HCl (Vancocin) 250 ml @ 125 mls/hr Q36H IVPB ; Start 07/21/17 at 08 :00 Enoxaparin Sodium 30 mg 30 mg DAILY SC Last administered on 07/20/17t 14:13; Admin Dose 30 MG; Start 07/20/17 at 13:00 Cefepime HCl (Maxipime 1gm/50 ml (Pmx)) 50 ml @ 100 mls/hr Q24H IVPB ; Start 07/20/17 at 21:00 ZORAN ABREU Jul 20, 2017 18:18
[2017-07-20] MEDS: CEFEPIME 1GM/50 ML (PMX) 50 ML IVPB SCH (21:49)
[2017-07-20] MEDS: traZODone 50 MG TAB PO SCH (21:53)
[2017-07-20] MEDS: ATORVASTATIN 80 MG TAB PO SCH (21:53)
[2017-07-20] MEDS: AMLODIPINE 5 MG TAB PO SCH (21:55)
[2017-07-20] MEDS: MIRTAZAPINE 15 MG TAB PO SCH (21:57)
[2017-07-20] MEDS: APIXABAN 5 MG TABLET PO SCH (22:14)
[2017-07-21] VITALS (13 sets, daily range): BP systolic 105–127; BP diastolic 53–73; PULSE 75–99; RESP 17–20
[2017-07-21] MEDS: DEXTROSE 5% 1,000 ML IV SCH ×3 (01:08→21:08)
[2017-07-21 07:11] LABS: BASOPHILS % 0.3 % (0.0-2.0); EOSINOPHILS # 0.1 10^3/ul (0.0-0.5); EOSINOPHILS % 2.2 % (0.0-7.0); HEMATOCRIT 29.4 % (37.0-47.0); HEMOGLOBIN 9.1 g/dl (12.0-16.0); LYMPHOCYTES % 15.5 % (15.0-51.0); MEAN CORPUSCULAR HEMOGLOBIN 29.4 pg (29.0-33.0); MEAN CORPUSCULAR VOLUME 94.8 fl (82.0-101.0); MEAN PLATELET VOLUME 9.3 fl (7.4-10.4); MONOCYTE # 0.4 10^3/ul (0.3-0.9); MONOCYTES % 6.7 % (0.0-11.0); NEUTROPHIL # 4.7 10^3/ul (1.6-7.5); NEUTROPHILS % 74.7 % (39.0-77.0); PLATELET COUNT 145 10^3/UL (140-415); WHITE BLOOD COUNT 6.3 10^3/ul (4.8-10.8)
[2017-07-21 07:36] LABS: CALCIUM 7.8 mg/dl (8.4-10.2); CREATININE 1.15 mg/dl (0.44-1.00); MAGNESIUM 2.2 mg/dl (1.7-2.5); POTASSIUM 3.5 mmol/L (3.5-5.1)
[2017-07-21] MEDS ORDERED: VANCOMYCIN 1 GM in NS 250 ML IVPB SCH (08:00)
[2017-07-21] MEDS: APIXABAN 5 MG TABLET PO SCH ×2 (08:58→20:27)
[2017-07-21] MEDS: ASPIRIN (EC) 81 MG TAB PO SCH (08:58)
[2017-07-21] MEDS: METOPROLOL 50 MG TAB PO SCH ×2 (08:58→20:29)
[2017-07-21] MEDS: BETHANECHOL 25 MG TAB PO SCH ×2 (08:59→20:25)
[2017-07-21] MEDS: DOCUSATE SODIUM 100 MG CAP PO SCH (08:59)
[2017-07-21] MEDS ORDERED: ENOXAPARIN 40 MG/0.4 ML SYG SC SCH (09:00)
--- NOTE | 2017-07-21 13:39 | PN ---
Date/Time of Note Date/Time of Note DATE: 07/21/17 TIME: 13:37 Assessment/Plan VTE Prophylaxis VTE Prophylaxis Intervention: other Assessment/Plan Chief Complaint/Hosp Course 1. Sepsis secondary to UTI Urine culture shows MRSA and enterococcus ID consultation appreciated Continue vancomycin cefepime 2. History of end-stage dementia Patient is followed by hospice 3. Left lower extremity swelling, status post fall Imaging with soft tissue swelling but no acute fracture Pain management 4. Hypernatremia-resolved Continue IV fluids 5. History of CAD with stent Continue home medications 6. History of dyslipidemia Continue statin 7. Atrial fibrillation Continue beta-abdoulaye and Eliquis 8. History of compression fractures No pain reported Prophylaxis: Eliquis Problems: Subjective 24 Hr Interval Summary Constitutional: disoriented Exam/Review of Systems Vital Signs Vitals Vital Signs Date Time Temp Pulse Resp B/P Pulse Ox O2 Delivery O2 Flow Rate FiO2 07/21/17 12:13 75 07/21/17 11:33 98.0 18 105/56 98 07/19/17 05:30 Room Air Intake and Output 07/20/17 07/20/17 07/21/17 15:00 23:00 07:00 Intake Total 700 ml 800 ml Output Total 450 ml 600 ml Balance 250 ml 200 ml Exam Constitutional: alert Psych: confusion Respiratory: clear to auscultation Cardiovascular: regular rate and rhythm Gastrointestinal: soft, No distended Musculoskeletal: nl extremities to inspection Results Result Diagram: 07/21/17 0701 07/21/17 0701 Results 24 hrs Laboratory Tests Test 07/21/17 07:01 White Blood Count 6.3 Red Blood Count 3.10 L Hemoglobin 9.1 L Hematocrit 29.4 L Mean Corpuscular Volume 94.8 Mean Corpuscular Hemoglobin 29.4 Mean Corpuscular Hemoglobin Concent 31.0 L Red Cell Distribution Width 15.0 H Platelet Count 145 Mean Platelet Volume 9.3 Neutrophils % 74.7 Lymphocytes % 15.5 Monocytes % 6.7 Eosinophils % 2.2 Basophils % 0.3 Nucleated Red Blood Cells % 0.0 Neutrophils # 4.7 Lymphocytes # 1.0 Monocytes # 0.4 Eosinophils # 0.1 Basophils # 0.0 Nucleated Red Blood Cells # 0.0 Sodium Level 138 Potassium Level 3.5 Chloride Level 108 Carbon Dioxide Level 23 Anion Gap 11 Blood Urea Nitrogen 32 H Creatinine 1.15 H Glucose Level 87 Calcium Level 7.8 L Magnesium Level 2.2 Medications Medications Current Medications Dextrose (D5W) 1,000 ml @ 100 mls/hr Q10H IV Last administered on 07/21/17 07:02; Admin Dose 100 MLS/HR; Start 07/19/17 at 07:00 Ondansetron HCl (Zofran Inj) 4 mg Q6H PRN IV NAUSEA AND/OR VOMITING; Start 07/19/17 at 07:00 Acetaminophen (Tylenol Tab) 500 mg Q6H PRN PO PAIN; Start 07/19/17 at 10:00 Amlodipine Besylate (Norvasc) 5 mg QPM PO Last administered on 07/20/17 21:55 ; Admin Dose 5 MG; Start 07/19/17 at 21:00 Aspirin (Halfprin) 81 mg DAILY PO Last administered on 07/21/17 08:58; Admin Dose 81 MG; Start 07/20/17 at 09:00 Atorvastatin Calcium (Lipitor) 80 mg QHS PO Last administered on 07/20/17 21: 53; Admin Dose 80 MG; Start 07/19/17 at 21:00 Bethanechol Chloride (Urecholine) 25 mg BID PO Last administered on 07/21/17 08:59; Admin Dose 25 MG; Start 07/19/17 at 21:00 Docusate Sodium (Colace) 100 mg DAILY PO Last administered on 07/21/17 08:59 ; Admin Dose 100 MG; Start 07/20/17 at 09:00 Metoprolol Tartrate (Lopressor) 50 mg BID PO Last administered on 07/21/17 08 :58; Admin Dose 50 MG; Start 07/19/17 at 21:00 Mirtazapine (Remeron) 7.5 mg HS PO Last administered on 07/20/17 21:57; Admin Dose 7.5 MG; Start 07/19/17 at 21:00 Trazodone HCl 50 mg 50 mg QHS PO Last administered on 07/20/17 21:53; Admin Dose 50 MG; Start 07/19/17 at 21:00 Cefepime HCl (Maxipime 1gm/50 ml (Pmx)) 50 ml @ 100 mls/hr Q24H IVPB Last administered on 07/20/17 21:49; Admin Dose 100 MLS/HR; Start 07/20/17 at 21: 00 Apixaban 2.5 mg 2.5 mg BID PO Last administered on 07/21/17t 08:58; Admin Dose 2.5 MG; Start 07/20/17 at 21:00 Vancomycin HCl/ Dextrose/Water (Vancocin/D5W) 150 ml @ 75 mls/hr Q24H IVPB ; Start 07/22/17 at 09:00 ZORAN ABREU Jul 21, 2017 13:39
--- NOTE | 2017-07-21 18:50 | PN ---
DATE: 07/21/2017 SUBJECTIVE: The patient is awake, looks comfortable, no fevers overnight. WBC 6.3, no shift, no ba nds. BUN 32, creatinine 1.15. MICROBIOLOGY: Blood culture growing gram-positive cocci in pairs and clusters. Urine culture growi ng Providencia, MRSA, enterococcus species. Repeat blood cultures from yesterday are negative. ANTIMICROBIALS: The patient is on: 1. Vancomycin. 2. Cefepime. PHYSICAL EXAMINATION: GENERAL: This is a fragile, elderly woman who is awake, in no distress. HEENT: Head atraumatic, normocephalic. Sclerae anicteric. Buccal mucosa pink. NECK: Supple. CHEST: Rise symmetrical. Breath sounds clear. HEART: S1, S2. ABDOMEN: Soft, bowel tones present. EXTREMITIES: Without cyanosis. Left leg with area of erythema and fluctuance laterally by the knee . ASSESSMENT: 1. Bacteremia. 2. Polymicrobial urinary tract infection. 3. Left lower extremity cellulitis with possible hematoma versus abscess. 4. History of left knee arthroplasty without evidence of periprosthetic fracture or hardware loosen ing per x-ray, new. 5. Coronary artery disease, history of stent. PLAN: The patient remains stable. We will continue her on current antibiotics. Consider 2D echo a nd ortho evaluation for possible fluid aspiration from her left lower extremity. Dictated By: BRITTANI MORA [employer] OPERATOR for ROSA YANG MD NI/NTS Conf#: [id number] DID#: [id number] CC: CHER BROWN MD;*End*
[2017-07-21] MEDS: CEFEPIME 1GM/50 ML (PMX) 50 ML IVPB SCH (20:25)
[2017-07-21] MEDS: ATORVASTATIN 80 MG TAB PO SCH (20:25)
[2017-07-21] MEDS: MIRTAZAPINE 15 MG TAB PO SCH (20:27)
[2017-07-21] MEDS: AMLODIPINE 5 MG TAB PO SCH (20:29)
[2017-07-21] MEDS: traZODone 50 MG TAB PO SCH (20:29)
[2017-07-22] VITALS (11 sets, daily range): BP systolic 106–138; BP diastolic 57–79; PULSE 70–91; RESP 16–21
[2017-07-22] MEDS: DEXTROSE 5% 1,000 ML IV SCH ×3 (00:49→17:58)
[2017-07-22 06:34] LABS: BASOPHILS % 0.2 % (0.0-2.0); EOSINOPHILS # 0.1 10^3/ul (0.0-0.5); HEMATOCRIT 30.2 % (37.0-47.0); HEMOGLOBIN 9.8 g/dl (12.0-16.0); LYMPHOCYTES # 1.2 10^3/ul (0.8-2.9); LYMPHOCYTES % 18.2 % (15.0-51.0); MEAN CORPUSCULAR HEMOGLOBIN 30.4 pg (29.0-33.0); MEAN CORPUSCULAR HGB CONC 32.5 g/dl (32.0-37.0); MEAN CORPUSCULAR VOLUME 93.8 fl (82.0-101.0); MEAN PLATELET VOLUME 10.4 fl (7.4-10.4); MONOCYTE # 0.5 10^3/ul (0.3-0.9); MONOCYTES % 7.3 % (0.0-11.0); NEUTROPHIL # 4.7 10^3/ul (1.6-7.5); NEUTROPHILS % 71.8 % (39.0-77.0); PLATELET COUNT 152 10^3/UL (140-415); RED BLOOD COUNT 3.22 10^6/ul (4.20-5.40); RED CELL DISTRIBUTION WIDTH 14.4 % (11.5-14.5); WHITE BLOOD COUNT 6.6 10^3/ul (4.8-10.8)
[2017-07-22 07:26] LABS: CREATININE 1.18 mg/dl (0.44-1.00); MAGNESIUM 2.1 mg/dl (1.7-2.5); POTASSIUM 3.2 mmol/L (3.5-5.1)
[2017-07-22] MEDS: METOPROLOL 50 MG TAB PO SCH ×2 (09:25→22:07)
[2017-07-22] MEDS: APIXABAN 5 MG TABLET PO SCH ×2 (09:25→22:07)
[2017-07-22] MEDS: ASPIRIN (EC) 81 MG TAB PO SCH (09:26)
[2017-07-22] MEDS: BETHANECHOL 25 MG TAB PO SCH ×2 (09:26→22:05)
[2017-07-22] MEDS: DOCUSATE SODIUM 100 MG CAP PO SCH (09:26)
[2017-07-22] MEDS: VANCOMYCIN 750 MG in DEXTROSE 5% 150 ML IVPB SCH (09:39)
[2017-07-22] MEDS ORDERED: POTASSIUM CHLORIDE 250 ML IVPB ONE (12:30)
--- NOTE | 2017-07-22 16:44 | CONS ---
Date/Time of Note Date/Time of Note DATE: 07/22/17 TIME: 16:39 Consultation Date/Type/Reason Admit Date/Time Jul 19, 2017 at 04:12 Initial Consult Date SUBJECTIVE: 81 y/o female being treated for bacteremia and UTI, Lt LE cellulitis. The patient is sleepy, and looks comfortable. No acute events over night. VS:118/77 P:85 R:21 SO2:98% T:97.2 WBC 6.6 H&H:9.8/30.2 BUN 32, creatinine 1.15. MICROBIOLOGY: Blood culture growing gram-positive cocci in pairs and clusters. Urine culture growing Providencia, MRSA, enterococcus species. Repeat blood cultures from yesterday are negative. ANTIMICROBIALS: The patient is on: 1. Vancomycin. 2. Cefepime. PHYSICAL EXAMINATION: GENERAL: This is a fragile, elderly woman who is awake, in no distress. HEENT: Head atraumatic, normocephalic. Sclerae anicteric. Buccal mucosa pink. NECK: Supple. CHEST: Rise symmetrical. Breath sounds clear. HEART: S1, S2. ABDOMEN: Soft, bowel tones present. EXTREMITIES: Without cyanosis. Left leg with area of erythema and fluctuance laterally by the knee. ASSESSMENT: 1. Bacteremia. 2. Polymicrobial urinary tract infection. 3. Left lower extremity cellulitis with possible hematoma versus abscess. 4. History of left knee arthroplasty without evidence of periprosthetic fracture or hardware loosening per x-ray, new. 5. Coronary artery disease, history of stent. PLAN: The patient remains stable. We will continue her on current antibiotics. Awaiting ortho eval. Type of Consultation: ID Exam/Review of Systems Vital Signs Vitals Vital Signs Date Time Temp Pulse Resp B/P Pulse Ox O2 Delivery O2 Flow Rate FiO2 07/22/17 16:23 91 07/22/17 15:26 97.2 21 118/77 98 07/19/17 05:30 Room Air Intake and Output 07/21/17 07/21/17 07/22/17 15:00 23:00 07:00 Intake Total 70 ml 820 ml 1500 ml Output Total 600 ml 900 ml Balance 70 ml 220 ml 600 ml Results Result Diagram: 07/22/17 0553 07/22/17 0553 Results 24 hrs Laboratory Tests Test 07/22/17 05:53 White Blood Count 6.6 Red Blood Count 3.22 L Hemoglobin 9.8 L Hematocrit 30.2 L Mean Corpuscular Volume 93.8 Mean Corpuscular Hemoglobin 30.4 Mean Corpuscular Hemoglobin Concent 32.5 Red Cell Distribution Width 14.4 Platelet Count 152 Mean Platelet Volume 10.4 Neutrophils % 71.8 Lymphocytes % 18.2 Monocytes % 7.3 Eosinophils % 2.0 Basophils % 0.2 Nucleated Red Blood Cells % 0.0 Neutrophils # 4.7 Lymphocytes # 1.2 Monocytes # 0.5 Eosinophils # 0.1 Basophils # 0.0 Nucleated Red Blood Cells # 0.0 Sodium Level 136 Potassium Level 3.2 L Chloride Level 107 Carbon Dioxide Level 21 Anion Gap 11 Blood Urea Nitrogen 28 H Creatinine 1.18 H Glucose Level 105 Calcium Level 8.0 L Magnesium Level 2.1 Medications Medications Current Medications Dextrose (D5W) 1,000 ml @ 100 mls/hr Q10H IV Last administered on 07/22/17 00:49; Admin Dose 100 MLS/HR; Start 07/19/17 at 07:00 Ondansetron HCl (Zofran Inj) 4 mg Q6H PRN IV NAUSEA AND/OR VOMITING; Start 07/19/17 at 07:00 Acetaminophen (Tylenol Tab) 500 mg Q6H PRN PO PAIN; Start 07/19/17 at 10:00 Amlodipine Besylate (Norvasc) 5 mg QPM PO Last administered on 07/21/17 20:29 ; Admin Dose 5 MG; Start 07/19/17 at 21:00 Aspirin (Halfprin) 81 mg DAILY PO Last administered on 07/22/17 09:26; Admin Dose 81 MG; Start 07/20/17 at 09:00 Atorvastatin Calcium (Lipitor) 80 mg QHS PO Last administered on 07/21/17 20: 25; Admin Dose 80 MG; Start 07/19/17 at 21:00 Bethanechol Chloride (Urecholine) 25 mg BID PO Last administered on 07/22/17 09:26; Admin Dose 25 MG; Start 07/19/17 at 21:00 Docusate Sodium (Colace) 100 mg DAILY PO Last administered on 07/22/17 09:26 ; Admin Dose 100 MG; Start 07/20/17 at 09:00 Metoprolol Tartrate (Lopressor) 50 mg BID PO Last administered on 07/22/17 09 :25; Admin Dose 50 MG; Start 07/19/17 at 21:00 Mirtazapine (Remeron) 7.5 mg HS PO Last administered on 07/21/17 20:27; Admin Dose 7.5 MG; Start 07/19/17 at 21:00 Trazodone HCl 50 mg 50 mg QHS PO Last administered on 07/21/17 20:29; Admin Dose 50 MG; Start 07/19/17 at 21:00 Cefepime HCl (Maxipime 1gm/50 ml (Pmx)) 50 ml @ 100 mls/hr Q24H IVPB Last administered on 07/21/17 20:25; Admin Dose 100 MLS/HR; Start 07/20/17 at 21: 00 Apixaban 2.5 mg 2.5 mg BID PO Last administered on 07/22/17 09:25; Admin Dose 2.5 MG; Start 07/20/17 at 21:00 Vancomycin HCl/ Dextrose/Water (Vancocin/D5W) 150 ml @ 75 mls/hr Q24H IVPB Last administered on 07/22/17 09:39; Admin Dose 75 MLS/HR; Start 07/22/17 at 09:00 Miscellaneous Information (*Rx Drug Level Order Reminder*) VANCO TROUGH @ 0, 800 ON ... ONCE ONCE XX ; Start 07/23/17 at 08:00; Stop 07/23/17 at 08:01 DENNIS SNYDER Jul 22, 2017 16:44
--- NOTE | 2017-07-22 19:10 | PN ---
Date/Time of Note Date/Time of Note DATE: 07/22/17 TIME: 19:06 Assessment/Plan VTE Prophylaxis VTE Prophylaxis Intervention: other Assessment/Plan Chief Complaint/Hosp Course 1. Sepsis secondary to UTI Urine culture shows MRSA and enterococcus ID consultation appreciated Continue vancomycin and cefepime 2. History of end-stage dementia Patient is followed by hospice at a facility 3. Left lower extremity swelling, status post fall Imaging with soft tissue swelling but no acute fracture Pain management 4. Hypernatremia-resolved Continue IV fluids 5. History of CAD with stent Continue home medications 6. History of dyslipidemia Continue statin 7. Atrial fibrillation Continue beta-abdoulaye and Eliquis 8. History of compression fractures No pain reported Prophylaxis: Eliquis Discharge planning: Follow-up with ID recommendations for duration of antibiotic treatment as hospice is unlikely to provide IV antibiotics once discharged Problems: Subjective 24 Hr Interval Summary Constitutional: disoriented Exam/Review of Systems Vital Signs Vitals Vital Signs Date Time Temp Pulse Resp B/P Pulse Ox O2 Delivery O2 Flow Rate FiO2 07/22/17 16:23 91 07/22/17 15:26 97.2 21 118/77 98 07/19/17 05:30 Room Air Intake and Output 07/21/17 07/21/17 07/22/17 15:00 23:00 07:00 Intake Total 70 ml 820 ml 1500 ml Output Total 600 ml 900 ml Balance 70 ml 220 ml 600 ml Exam Psych: confusion Respiratory: clear to auscultation Cardiovascular: regular rate and rhythm Gastrointestinal: soft, No distended Musculoskeletal: nl extremities to inspection Results Result Diagram: 07/22/17 0553 07/22/17 0553 Results 24 hrs Laboratory Tests Test 07/22/17 05:53 White Blood Count 6.6 Red Blood Count 3.22 L Hemoglobin 9.8 L Hematocrit 30.2 L Mean Corpuscular Volume 93.8 Mean Corpuscular Hemoglobin 30.4 Mean Corpuscular Hemoglobin Concent 32.5 Red Cell Distribution Width 14.4 Platelet Count 152 Mean Platelet Volume 10.4 Neutrophils % 71.8 Lymphocytes % 18.2 Monocytes % 7.3 Eosinophils % 2.0 Basophils % 0.2 Nucleated Red Blood Cells % 0.0 Neutrophils # 4.7 Lymphocytes # 1.2 Monocytes # 0.5 Eosinophils # 0.1 Basophils # 0.0 Nucleated Red Blood Cells # 0.0 Sodium Level 136 Potassium Level 3.2 L Chloride Level 107 Carbon Dioxide Level 21 Anion Gap 11 Blood Urea Nitrogen 28 H Creatinine 1.18 H Glucose Level 105 Calcium Level 8.0 L Magnesium Level 2.1 Medications Medications Current Medications Dextrose (D5W) 1,000 ml @ 100 mls/hr Q10H IV Last administered on 07/22/17 17:58; Admin Dose 100 MLS/HR; Start 07/19/17 at 07:00 Ondansetron HCl (Zofran Inj) 4 mg Q6H PRN IV NAUSEA AND/OR VOMITING; Start 07/19/17 at 07:00 Acetaminophen (Tylenol Tab) 500 mg Q6H PRN PO PAIN; Start 07/19/17 at 10:00 Amlodipine Besylate (Norvasc) 5 mg QPM PO Last administered on 07/21/17 20:29 ; Admin Dose 5 MG; Start 07/19/17 at 21:00 Aspirin (Halfprin) 81 mg DAILY PO Last administered on 07/22/17 09:26; Admin Dose 81 MG; Start 07/20/17 at 09:00 Atorvastatin Calcium (Lipitor) 80 mg QHS PO Last administered on 07/21/17 20: 25; Admin Dose 80 MG; Start 07/19/17 at 21:00 Bethanechol Chloride (Urecholine) 25 mg BID PO Last administered on 07/22/17 09:26; Admin Dose 25 MG; Start 07/19/17 at 21:00 Docusate Sodium (Colace) 100 mg DAILY PO Last administered on 07/22/17 09:26 ; Admin Dose 100 MG; Start 07/20/17 at 09:00 Metoprolol Tartrate (Lopressor) 50 mg BID PO Last administered on 07/22/17 09 :25; Admin Dose 50 MG; Start 07/19/17 at 21:00 Mirtazapine (Remeron) 7.5 mg HS PO Last administered on 07/21/17 20:27; Admin Dose 7.5 MG; Start 07/19/17 at 21:00 Trazodone HCl 50 mg 50 mg QHS PO Last administered on 07/21/17 20:29; Admin Dose 50 MG; Start 07/19/17 at 21:00 Cefepime HCl (Maxipime 1gm/50 ml (Pmx)) 50 ml @ 100 mls/hr Q24H IVPB Last administered on 07/21/17 20:25; Admin Dose 100 MLS/HR; Start 07/20/17 at 21: 00 Apixaban 2.5 mg 2.5 mg BID PO Last administered on 07/22/17 09:25; Admin Dose 2.5 MG; Start 07/20/17 at 21:00 Vancomycin HCl/ Dextrose/Water (Vancocin/D5W) 150 ml @ 75 mls/hr Q24H IVPB Last administered on 07/22/17 09:39; Admin Dose 75 MLS/HR; Start 07/22/17 at 09:00 Miscellaneous Information (*Rx Drug Level Order Reminder*) VANCO TROUGH @ 0, 800 ON ... ONCE ONCE XX ; Start 07/23/17 at 08:00; Stop 07/23/17 at 08:01 ZORAN ABREU Jul 22, 2017 19:10
[2017-07-22] MEDS: CEFEPIME 1GM/50 ML (PMX) 50 ML IVPB SCH (22:03)
[2017-07-22] MEDS: ATORVASTATIN 80 MG TAB PO SCH (22:04)
[2017-07-22] MEDS: traZODone 50 MG TAB PO SCH (22:05)
[2017-07-22] MEDS: MIRTAZAPINE 15 MG TAB PO SCH (22:05)
[2017-07-22] MEDS: AMLODIPINE 5 MG TAB PO SCH (22:05)
[2017-07-23] VITALS (10 sets, daily range): BP systolic 98–121; BP diastolic 54–72; PULSE 87–100; RESP 17–19
[2017-07-23] MEDS: DEXTROSE 5% 1,000 ML IV SCH ×2 (03:08→10:28)
[2017-07-23 09:19] LABS: BASOPHILS % 0.4 % (0.0-2.0); EOSINOPHILS # 0.2 10^3/ul (0.0-0.5); EOSINOPHILS % 3.7 % (0.0-7.0); HEMATOCRIT 29.2 % (37.0-47.0); HEMOGLOBIN 9.2 g/dl (12.0-16.0); LYMPHOCYTES # 1.1 10^3/ul (0.8-2.9); LYMPHOCYTES % 20.6 % (15.0-51.0); MEAN CORPUSCULAR HEMOGLOBIN 29.3 pg (29.0-33.0); MEAN CORPUSCULAR HGB CONC 31.5 g/dl (32.0-37.0); MEAN PLATELET VOLUME 10.1 fl (7.4-10.4); MONOCYTE # 0.5 10^3/ul (0.3-0.9); MONOCYTES % 10.4 % (0.0-11.0); NEUTROPHIL # 3.3 10^3/ul (1.6-7.5); NEUTROPHILS % 64.5 % (39.0-77.0); PLATELET COUNT 146 10^3/UL (140-415); RED BLOOD COUNT 3.14 10^6/ul (4.20-5.40); RED CELL DISTRIBUTION WIDTH 14.5 % (11.5-14.5); WHITE BLOOD COUNT 5.1 10^3/ul (4.8-10.8)
[2017-07-23 09:45] LABS: CALCIUM 8.1 mg/dl (8.4-10.2); CREATININE 1.1 mg/dl (0.44-1.00); POTASSIUM 3.2 mmol/L (3.5-5.1)
[2017-07-23] MEDS: DOCUSATE SODIUM 100 MG CAP PO SCH (10:21)
[2017-07-23] MEDS: METOPROLOL 50 MG TAB PO SCH (10:22)
[2017-07-23] MEDS: BETHANECHOL 25 MG TAB PO SCH (10:22)
[2017-07-23] MEDS: ASPIRIN (EC) 81 MG TAB PO SCH (10:22)
[2017-07-23] MEDS: APIXABAN 5 MG TABLET PO SCH ×2 (10:22→22:07)
[2017-07-23] MEDS: VANCOMYCIN 750 MG in DEXTROSE 5% 150 ML IVPB SCH (10:29)
--- NOTE | 2017-07-23 13:10 | CONS ---
Date/Time of Note Date/Time of Note DATE: 07/23/17 TIME: 13:07 Consult Date/Type/Reason Admit Date/Time Jul 19, 2017 at 04:12 Initial Consult Date Type of Consultation: ID Objective Vital Signs Date Time Temp Pulse Resp B/P Pulse Ox O2 Delivery O2 Flow Rate FiO2 07/23/17 12:23 88 07/23/17 11:44 97.8 17 105/60 98 Intake and Output 07/22/17 07/22/17 07/23/17 15:00 23:00 07:00 Intake Total 150 ml 950 ml 1050 ml Output Total 750 ml 850 ml Balance 150 ml 200 ml 200 ml Results/Medications Result Diagram: 07/23/17 0832 07/23/17 0832 Results 24 hrs Laboratory Tests Test 07/23/17 08:32 White Blood Count 5.1 # Red Blood Count 3.14 L Hemoglobin 9.2 L Hematocrit 29.2 L Mean Corpuscular Volume 93.0 Mean Corpuscular Hemoglobin 29.3 Mean Corpuscular Hemoglobin Concent 31.5 L Red Cell Distribution Width 14.5 Platelet Count 146 Mean Platelet Volume 10.1 Neutrophils % 64.5 Lymphocytes % 20.6 Monocytes % 10.4 Eosinophils % 3.7 Basophils % 0.4 Nucleated Red Blood Cells % 0.0 Neutrophils # 3.3 Lymphocytes # 1.1 Monocytes # 0.5 Eosinophils # 0.2 Basophils # 0.0 Nucleated Red Blood Cells # 0.0 Sodium Level 138 Potassium Level 3.2 L Chloride Level 110 Carbon Dioxide Level 20 L Anion Gap 11 Blood Urea Nitrogen 23 H Creatinine 1.10 H Glucose Level 93 Calcium Level 8.1 L Vancomycin Level Trough 15.4 Medications Current Medications Ondansetron HCl (Zofran Inj) 4 mg Q6H PRN IV NAUSEA AND/OR VOMITING; Start 07/19/17 at 07:00 Acetaminophen (Tylenol Tab) 500 mg Q6H PRN PO PAIN; Start 07/19/17 at 10:00 Aspirin (Halfprin) 81 mg DAILY PO Last administered on 07/23/17 10:22; Admin Dose 81 MG; Start 07/20/17 at 09:00 Atorvastatin Calcium (Lipitor) 80 mg QHS PO Last administered on 07/22/17 22: 04; Admin Dose 80 MG; Start 07/19/17 at 21:00 Bethanechol Chloride (Urecholine) 25 mg BID PO Last administered on 07/23/17 10:22; Admin Dose 25 MG; Start 07/19/17 at 21:00 Docusate Sodium (Colace) 100 mg DAILY PO Last administered on 07/23/17 10:21 ; Admin Dose 100 MG; Start 07/20/17 at 09:00 Metoprolol Tartrate (Lopressor) 50 mg BID PO Last administered on 07/23/17 10 :22; Admin Dose 50 MG; Start 07/19/17 at 21:00 Mirtazapine (Remeron) 7.5 mg HS PO Last administered on 07/22/17 22:05; Admin Dose 7.5 MG; Start 07/19/17 at 21:00 Trazodone HCl 50 mg 50 mg QHS PO Last administered on 07/22/17 22:05; Admin Dose 50 MG; Start 07/19/17 at 21:00 Cefepime HCl (Maxipime 1gm/50 ml (Pmx)) 50 ml @ 100 mls/hr Q24H IVPB Last administered on 07/22/17 22:03; Admin Dose 100 MLS/HR; Start 07/20/17 at 21: 00 Apixaban 2.5 mg 2.5 mg BID PO Last administered on 07/23/17 10:22; Admin Dose 2.5 MG; Start 07/20/17 at 21:00 Vancomycin HCl/ Dextrose/Water (Vancocin/D5W) 150 ml @ 75 mls/hr Q24H IVPB ; Start 07/24/17 at 09:00 Assessment/Plan Chief Complaint/Hosp Course SUBJECTIVE: No acute events, looks comfortable, no fevers overnight. MICROBIOLOGY: Blood culture growing gram-positive cocci in pairs and clusters. Urine culture growing Providencia, MRSA, enterococcus species. Repeat blood cultures from yesterday are negative. ANTIMICROBIALS: 1. Vancomycin. 2. Cefepime. PHYSICAL EXAMINATION: GENERAL: This is a fragile, elderly woman who is awake, in no distress. HEENT: Head atraumatic, normocephalic. Sclerae anicteric. Buccal mucosa pink. NECK: Supple. CHEST: Rise symmetrical. Breath sounds clear. HEART: S1, S2. ABDOMEN: Soft, bowel tones present. EXTREMITIES: Without cyanosis. Left leg with decreased erythema, + fluctuance lateral side of knee. ASSESSMENT: 1. Bacteremia, cw contaminant. 2. Polymicrobial urinary tract infection. 3. Left lower extremity cellulitis with possible hematoma versus abscess. 4. History of left knee arthroplasty without evidence of periprosthetic fracture or hardware loosening per x-ray, new. 5. Coronary artery disease, history of stent. PLAN: The patient remains stable. As per primary care note will be going home with hospice, will continue her on current antibiotics while in house, anticipate dc on PO Bactrim and Amoxil to complete 10 days total abx. Problems: BRITTANI MORA NP Jul 23, 2017 13:10
--- NOTE | 2017-07-23 15:56 | RADRPT ---
Echocardiogram Report Patient Name: ALEJANDRO DOHERTY Gender: Female Date: 1935 Study Date: 22-Jul-2017 Credit Administration Officer: DARRELL Location: Ref. Physician: BRITTANI MORA Quality: Adequate Procedures: Transthoracic echocardiogram with 2D, M-Mode, and Doppler examination. Indications: Endocarditis. 2D/M Mode Doppler Measurement Value Normal Ranges Measurement Value Normal Ranges AoR Diam MM 2.7 cm AV Peak Darian 1.0 m/sec ACS MM 1.5 cm AV Peak PG 3.9 mmHg LVIDd 2D 3.5 3.5 - 5.6 cm LVOT Peak Darian 0.7 m/sec LVIDs 2D 2.7 2.1 - 4.1 cm LVOT Peak PG 1.9 mmHg LVPWd 2D 1.1 0.6 - 1.1 cm TR Peak Darian 3.3 m/sec IVSd 2D 1.1 0.6 - 1.1 cm TR Peak PG 43.6 mmHg EDV 2D 52.2 cm3 PV Peak Darian 0.6 m/sec ESV 2D 20.5 cm3 PV Peak PG 2.0 mmHg LA Dimen 2D 4.2 2.3 - 4.0 cm RVSP 50.0 mmHg Findings Left Ventricle: Normal left ventricular systolic function, not all wall segments imaged well. Normal left ventricular cavity size. Normal left ventricular wall thickness. Ejection fraction is visually estimated at 60 %. Abnormal Diastolic Function. Right Ventricle: Normal right ventricular size. Normal right ventricular systolic function. Left Atrium: There is mild enlargement of left atrium. Right Atrium: There appears to be mild enlargement of right atrium, poor apicals. Mitral Valve: Mild mitral annular calcification. Trace mitral regurgitation. Aortic Valve: No significant aortic stenosis or insufficiency. Aortic cusps appear mildly calcified. Tricuspid Valve: Tricuspid valve not well visualized. Estimated peak PA systolic pressure 50 mmHg. There is moderate tricuspid regurgitation. Pulmonic Valve: Normal pulmonic valve appearance. There is mild pulmonic regurgitation. Pericardium: Trivial pericardial effusion. Aorta: Normal aortic root. IVC: The IVC is not well visualized. Pulmonary Artery: Normal pulmonary artery size. Conclusions 1.Normal left ventricular systolic function, not all wall segments imaged well. Normal left ventricular cavity size. Normal left ventricular wall thickness. Ejection fraction is visually estimated at 60 %. Abnormal Diastolic Function. 2.Normal right ventricular size. Normal right ventricular systolic function. 3.There is mild enlargement of left atrium. 4.There appears to be mild enlargement of right atrium. 5.Trace mitral regurgitation. 6.No significant aortic stenosis or insufficiency. 7.Estimated peak PA systolic pressure 50 mmHg. There is moderate tricuspid regurgitation. 8.Trivial pericardial effusion. Electronically Signed By: Diego Beasley 23-Jul-2017 15:56:04 -0800 Patient Name: ALEJANDRO DOHERTY Study Date: 22-Jul-[id number]
--- NOTE | 2017-07-23 16:21 | PN ---
Date/Time of Note Date/Time of Note DATE: 07/23/17 TIME: 16:20 Assessment/Plan VTE Prophylaxis VTE Prophylaxis Intervention: other Lines/Catheters IV Catheter Type (from Nrs): Central Line Central line still needed: No Urinary Cath still in place: Yes Reason Cath still needed: urinary retention Assessment/Plan Chief Complaint/Hosp Course 81 [facility] - Continue abx per ID - Can dc non essential meds given hospice status - Ready for dc tomorrow to hospice Problems: Subjective 24 Hr Interval Summary Free Text/Dictation Clinically improved, plan to transfer back to [facility] Exam/Review of Systems Vital Signs Vitals Vital Signs Date Time Temp Pulse Resp B/P Pulse Ox O2 Delivery O2 Flow Rate FiO2 07/23/17 13:41 98.3 100 18 100/58 96 Room Air Intake and Output 07/22/17 07/22/17 07/23/17 15:00 23:00 07:00 Intake Total 150 ml 950 ml 1050 ml Output Total 750 ml 850 ml Balance 150 ml 200 ml 200 ml Exam Constitutional: alert, oriented, well developed Psych: nl mood/affect, no complaints Head: atraumatic, normocephalic Eyes: EOMI, PERRL, nl conjunctiva, nl lids, nl sclera ENMT: nl external ears & nose, nl lips & teeth, nl nasal mucosa & septum Neck: non-tender, supple Respiratory: clear to auscultation, normal air movement Cardiovascular: nl pulses, regular rate and rhythm Gastrointestinal: nl liver, spleen, non-tender, soft Musculoskeletal: nl extremities to inspection, nl gait and stance Extremities: normal pulses Neurological: [employer] II-XII intact, nl mental status, nl speech, nl strength Skin: nl turgor, No rash or lesions Lymph: nl lymph nodes Results Result Diagram: 07/23/17 0832 07/23/17 0832 Results 24 hrs Laboratory Tests Test 07/23/17 08:32 White Blood Count 5.1 # Red Blood Count 3.14 L Hemoglobin 9.2 L Hematocrit 29.2 L Mean Corpuscular Volume 93.0 Mean Corpuscular Hemoglobin 29.3 Mean Corpuscular Hemoglobin Concent 31.5 L Red Cell Distribution Width 14.5 Platelet Count 146 Mean Platelet Volume 10.1 Neutrophils % 64.5 Lymphocytes % 20.6 Monocytes % 10.4 Eosinophils % 3.7 Basophils % 0.4 Nucleated Red Blood Cells % 0.0 Neutrophils # 3.3 Lymphocytes # 1.1 Monocytes # 0.5 Eosinophils # 0.2 Basophils # 0.0 Nucleated Red Blood Cells # 0.0 Sodium Level 138 Potassium Level 3.2 L Chloride Level 110 Carbon Dioxide Level 20 L Anion Gap 11 Blood Urea Nitrogen 23 H Creatinine 1.10 H Glucose Level 93 Calcium Level 8.1 L Vancomycin Level Trough 15.4 Medications Medications Current Medications Ondansetron HCl (Zofran Inj) 4 mg Q6H PRN IV NAUSEA AND/OR VOMITING; Start 07/19/17 at 07:00 Acetaminophen (Tylenol Tab) 500 mg Q6H PRN PO PAIN; Start 07/19/17 at 10:00 Aspirin (Halfprin) 81 mg DAILY PO Last administered on 07/23/17 10:22; Admin Dose 81 MG; Start 07/20/17 at 09:00 Atorvastatin Calcium (Lipitor) 80 mg QHS PO Last administered on 07/22/17 22: 04; Admin Dose 80 MG; Start 07/19/17 at 21:00 Bethanechol Chloride (Urecholine) 25 mg BID PO Last administered on 07/23/17 10:22; Admin Dose 25 MG; Start 07/19/17 at 21:00 Docusate Sodium (Colace) 100 mg DAILY PO Last administered on 07/23/17 10:21 ; Admin Dose 100 MG; Start 07/20/17 at 09:00 Metoprolol Tartrate (Lopressor) 50 mg BID PO Last administered on 07/23/17 10 :22; Admin Dose 50 MG; Start 07/19/17 at 21:00 Mirtazapine (Remeron) 7.5 mg HS PO Last administered on 07/22/17 22:05; Admin Dose 7.5 MG; Start 07/19/17 at 21:00 Trazodone HCl 50 mg 50 mg QHS PO Last administered on 07/22/17 22:05; Admin Dose 50 MG; Start 07/19/17 at 21:00 Cefepime HCl (Maxipime 1gm/50 ml (Pmx)) 50 ml @ 100 mls/hr Q24H IVPB Last administered on 07/22/17 22:03; Admin Dose 100 MLS/HR; Start 07/20/17 at 21: 00 Apixaban 2.5 mg 2.5 mg BID PO Last administered on 07/23/17t 10:22; Admin Dose 2.5 MG; Start 07/20/17 at 21:00 Vancomycin HCl/ Dextrose/Water (Vancocin/D5W) 150 ml @ 75 mls/hr Q24H IVPB ; Start 07/24/17 at 09:00 AGATHA WALLACE MD Jul 23, 2017 16:21
[2017-07-23] MEDS: traZODone 50 MG TAB PO SCH (22:06)
[2017-07-23] MEDS: CEFEPIME 1GM/50 ML (PMX) 50 ML IVPB SCH (22:06)
[2017-07-23] MEDS: MIRTAZAPINE 15 MG TAB PO SCH (22:07)
[2017-07-24 02:24] VITALS: BP 109/57; RESP 18
[2017-07-24 07:55] VITALS: BP 101/51; RESP 18
[2017-07-24] MEDS ORDERED: VANCOMYCIN 750 MG in DEXTROSE 5% 150 ML IVPB SCH (09:00)
[2017-07-24] MEDS: VANCOMYCIN 650 MG in DEXTROSE 5% 150 ML IVPB SCH (09:26)
[2017-07-24] MEDS: APIXABAN 5 MG TABLET PO SCH ×2 (09:26→20:49)
--- NOTE | 2017-07-24 13:25 | CONS ---
Date/Time of Note Date/Time of Note DATE: 07/24/17 TIME: 13:23 Consult Date/Type/Reason Admit Date/Time Jul 19, 2017 at 04:12 Type of Consultation: ID Objective Vital Signs Date Time Temp Pulse Resp B/P Pulse Ox O2 Delivery O2 Flow Rate FiO2 07/24/17 07:55 98.4 85 18 101/51 97 07/23/17 13:41 Room Air Intake and Output 07/23/17 07/23/17 07/24/17 14:59 22:59 06:59 Intake Total 200 ml Output Total 600 ml 550 ml Balance -400 ml -550 ml Results/Medications Result Diagram: 07/23/17 0832 07/23/17 0832 Medications Current Medications Acetaminophen (Tylenol Tab) 500 mg Q6H PRN PO PAIN; Start 07/19/17 at 10:00 Mirtazapine (Remeron) 7.5 mg HS PO Last administered on 07/23/17 22:07; Admin Dose 7.5 MG; Start 07/19/17 at 21:00 Trazodone HCl 50 mg 50 mg QHS PO Last administered on 07/23/17 22:06; Admin Dose 50 MG; Start 07/19/17 at 21:00 Cefepime HCl (Maxipime 1gm/50 ml (Pmx)) 50 ml @ 100 mls/hr Q24H IVPB Last administered on 07/23/17 22:06; Admin Dose 100 MLS/HR; Start 07/20/17 at 21: 00 Apixaban 2.5 mg 2.5 mg BID PO Last administered on 07/24/17 09:26; Admin Dose 2.5 MG; Start 07/20/17 at 21:00 Vancomycin HCl/ Dextrose/Water (Vancocin/D5W) 150 ml @ 75 mls/hr Q24H IVPB Last administered on 07/24/17 09:26; Admin Dose 75 MLS/HR; Start 07/24/17 at 09:00 Assessment/Plan Chief Complaint/Hosp Course SUBJECTIVE: No acute events, looks comfortable, no fevers. MICROBIOLOGY: Blood culture grew Staph. Urine culture growing Providencia, MRSA, enterococcus species. Repeat blood cultures from yesterday are negative. ANTIMICROBIALS: 1. Vancomycin. 2. Cefepime. PHYSICAL EXAMINATION: GENERAL: This is a fragile, elderly woman who is awake, in no distress. HEENT: Head atraumatic, normocephalic. Sclerae anicteric. Buccal mucosa pink. NECK: Supple. CHEST: Rise symmetrical. Breath sounds clear. HEART: S1, S2. ABDOMEN: Soft, bowel tones present. EXTREMITIES: Without cyanosis. Left leg with decreased erythema, + fluctuance lateral side of knee. ASSESSMENT: 1. Bacteremia, cw contaminant. 2. Polymicrobial urinary tract infection. 3. Left lower extremity cellulitis with possible hematoma versus abscess. 4. History of left knee arthroplasty without evidence of periprosthetic fracture or hardware loosening per x-ray, new. 5. Coronary artery disease, history of stent. PLAN: The patient remains unchanged, will be going home with hospice, will continue her on current antibiotics while in house, anticipate dc on PO Bactrim and Amoxil for 5 more days. Problems: BRITTANI MORA NP Jul 24, 2017 13:25
[2017-07-24 14:35] VITALS: BP 111/68; RESP 18
--- NOTE | 2017-07-24 18:18 | DS ---
Date/Time of Note Date/Time of Note DATE: 07/24/17 TIME: 18:18 Discharge Summary Admission/Discharge Info Admit Date/Time Jul 19, 2017 at 04:12 Discharge Date/Time Discharge Diagnosis UTI Patient Condition: Fair Hx of Present Illness This is an 81-year-old female with history of CAD with stent, dyslipidemia, hypertension, chronic kidney disease, dementia was brought to ER from assisted living facility for left lower extremity pain swelling, abdominal pain, nausea/ vomiting and diarrhea. Patient is not fully oriented and as such information is gathered from chart review and from the ER physician. Patient recently fell down and has been having pain and swelling of left lower extremity. While she was in the ER, she was noted to have multiple episodes of bowel movements. On presentation to the ER, vitals were stable. Multiple imagings were done. Left fibula/tibia imaging showed soft tissue swelling. CT abdomen pelvis showed degenerative changes within the spine with multiple compression fractures with chronic and acute components. Head CT with no acute findings. Labs shows WBC of almost 15,000 and urinalysis consistent with UTI. Hospital Course SUBJECTIVE: No acute events, looks comfortable, no fevers. MICROBIOLOGY: Blood culture grew Staph. Urine culture growing Providencia, MRSA, enterococcus species. Repeat blood cultures from yesterday are negative. ANTIMICROBIALS: 1. Vancomycin. 2. Cefepime. PHYSICAL EXAMINATION: GENERAL: This is a fragile, elderly woman who is awake, in no distress. HEENT: Head atraumatic, normocephalic. Sclerae anicteric. Buccal mucosa pink. NECK: Supple. CHEST: Rise symmetrical. Breath sounds clear. HEART: S1, S2. ABDOMEN: Soft, bowel tones present. EXTREMITIES: Without cyanosis. Left leg with decreased erythema, + fluctuance lateral side of knee. ASSESSMENT: 1. Bacteremia, cw contaminant. 2. Polymicrobial urinary tract infection. 3. Left lower extremity cellulitis with possible hematoma versus abscess. 4. History of left knee arthroplasty without evidence of periprosthetic fracture or hardware loosening per x-ray, new. 5. Coronary artery disease, history of stent. PLAN: The patient remains unchanged, will be going home with hospice, will continue her on current antibiotics while in house, anticipate dc on PO Bactrim and Amoxil for 5 more days. Patient completed a course of IV abx while in house. Her sypmtoms resolved and she was discharged to hospice Home Meds Reported Medications Apixaban* (Eliquis*) 2.5 Mg Tablet, 2.5 MG PO DAILY, TAB 07/19/17 Glycerin* (Glycerin (Adult)*) 1 Each Supp.rect, 1 EACH AK DAILY Y for CONSTIPATION, SUPP.RECT 07/19/17 Trazodone Hcl* (Trazodone Hcl*) 50 Mg Tablet, 50 MG PO QHS, #30 TAB 07/19/17 Acetaminophen* (Acetaminophen*) 500 MG Extra Strength Tablet, 500 MG PO Q6H Y for PAIN, TAB 07/19/17 Mirtazapine* (Mirtazapine*) 15 Mg Tablet, 7.5 MG PO HS, TAB 07/19/17 Docusate Sodium* (Docusate Sodium*) 100 Mg Capsule, 100 MG PO DAILY for CONSTIPATION, #30 CAP 07/19/17 Discontinued Reported Medications Amlodipine Besylate* (Norvasc*) 5 Mg Tablet, 5 MG PO QPM, TAB 07/19/17 Atorvastatin* (Atorvastatin*) 80 Mg Tablet, 80 MG PO QHS, #30 TAB 07/19/17 Bethanechol Chloride* (Urecholine*) 25 Mg Tab, 25 MG PO BID, TAB 07/19/17 Metoprolol Tartrate* (Lopressor*) 50 Mg Tab, 50 MG PO BID, #60 TAB 07/19/17 Aspirin* (Aspirin* (EC)) 81 Mg Tablet., 81 MG PO DAILY, TAB 07/19/17 Primary Care Provider Care Physician No AGATHA Schofield MD Jul 24, 2017 18:18
[2017-07-24 20:10] VITALS: BP 95/58; RESP 19
[2017-07-24] MEDS: CEFEPIME 1GM/50 ML (PMX) 50 ML IVPB SCH (20:48)
[2017-07-24] MEDS: MIRTAZAPINE 15 MG TAB PO SCH (20:49)
[2017-07-24] MEDS: traZODone 50 MG TAB PO SCH (20:49)
[2017-07-25 02:09] VITALS: BP 98/55; RESP 18
[2017-07-25 08:05] VITALS: BP 116/61; RESP 18
[2017-07-25] MEDS: VANCOMYCIN 650 MG in DEXTROSE 5% 150 ML IVPB SCH (09:05)
[2017-07-25] MEDS: APIXABAN 5 MG TABLET PO SCH (09:05)
[2017-07-25 14:00] VITALS: BP 120/70; RESP 18
== END 2017-07-25 14:53 | DRG 871 ==
LOC: E/R 22:45 → TEL 07-19 04:12 → PP2 07-23 13:14
PROVIDERS: ADMIT Internal Medicine; ATTEND Internal Medicine
DX: A41.9 Sepsis, unspecified organism (principal); G93.40 Encephalopathy, unspecified; E87.0 Hyperosmolality and hypernatremia; I48.91 Unspecified atrial fibrillation; N39.0 Urinary tract infection, site not specified; L03.116 Cellulitis of left lower limb; L02.416 Cutaneous abscess of left lower limb; F03.90 Unspecified dementia, unspecified severity, without behavioral disturbance, psychotic disturbance, mood disturbance, and anxiety; B95.2 Enterococcus as the cause of diseases classified elsewhere; B95.62 Methicillin resistant Staphylococcus aureus infection as the cause of diseases classified elsewhere; B96.89 Other specified bacterial agents as the cause of diseases classified elsewhere; I25.10 Atherosclerotic heart disease of native coronary artery without angina pectoris; Z95.5 Presence of coronary angioplasty implant and graft; E78.5 Hyperlipidemia, unspecified; Z66 Do not resuscitate
CPT/HCPCS: 70450; 71010; 73562; 73590; 74176; 80048; 80053; 80202; 81001; 81003; 82962; 83605; 83690; 83735; 84100; 84484; 85025; 85610; 85730; 87040; 87045; 87081; 87086; 92526; 92610; 93005; 93306; 97162; C1751; J0692; J0696; J1650; J2405; J2543; J3370; J3475; J3480; J7050; J7070